=== PATIENT | male | born 1940 | race Hispanic/Latino ===

== ENCOUNTER 2017-02-22 00:27 | Inpatient (IN) | payer MEDICARE ==
[2017-02-22 00:56] LABS: #Lymphocytes 0.8 thou/uL (1.20-3.40); #Monocytes 0.6 thou/uL (0.11-0.59); #Neutrophils 6.8 thou/uL (1.40-6.50); %Basophils 0.4 % (0.0-1.0); %Lymphocytes 9.6 % (21.0-51.0); %Monocytes 7.3 % (0.0-10.0); Hematocrit 33.8 % (42.0-52.0); Mean Platelet Volume 6.8 fL (7.4-10.4); Red Blood Cell (RBC) Count 3.93 mill/uL (4.70-6.10); White Blood Cell (WBC) Count 8.2 thou/uL (4.8-10.8)
[2017-02-22 01:04] LABS: PTT 31.8 SEC (22.9-36.1); Prothrombin Time 12.8 SEC (12.0-14.7)
[2017-02-22 01:08] LABS: Lactic Acid - Sepsis 1.4 mmol/L (0.5-2.2)
[2017-02-22 01:11] LABS: ALT (SGPT) 15 U/L (8-55); AST (SGOT) 22 U/L (5-34); Alkaline Phosphatase 58 U/L (40-150); Anion Gap 15 mmol/L (10-20); BUN (Urea Nitrogen) 20 mg/dL (8.4-25.7); Bilirubin, Total 0.6 mg/dL (0.2-1.2); CK (CPK) 62 U/L (30-200); Calc. Creatinine Clearance 0 mL/min (70-130); Calcium 9.1 mg/dL (7.8-10.44); Carbon Dioxide 25 mmol/L (23-31); Chloride 84 mmol/L (98-107); Estimated GFR-MDRD 56; Globulin 3.8 g/dL (2.4-3.5); Lipase 49 U/L (8-78); Protein, Total 7.8 g/dL (5.8-8.1)
[2017-02-22 01:16] LABS: Troponin I 0.014 ng/mL (< 0.028)
[2017-02-22 02:02] LABS: Oxyhemoglobin 91.9 % (94.0-97.0); Sodium 122 mmol/L (135-148)
[2017-02-22 02:03] LABS: Modified Allen's Test POSITIVE; Vent NO
[2017-02-22 02:04] LABS: Mode NASAL CANNULA
[2017-02-22 02:47] LABS: Bilirubin Negative (Negative); Blood, Urine Negative (Negative); Glucose, Urine (Dipstick) Negative (Negative); Ketone, Urine Negative (Negative); Nitrite Negative (Negative); Protein, Urine (Dipstick) Trace mg/dL (Neg-Trace); Urobilinogen 0.2 mg/dL (0.2-1.0)
[2017-02-22 02:49] LABS: Bacteria/HPF None Seen HPF (None Seen); Hyaline Casts/LPF 0-3 HYALINE CAST LPF (0-3 Hyaline); RBC/HPF 0-3 HPF (0-3); Squamous Epithelial None Seen HPF (0-3); WBC/HPF 0-3 HPF (0-3)
--- NOTE | 2017-02-22 07:45 | RAD ---
CHEST 1 VIEW: HISTORY: Fever. COMPARISON: Chest radiograph from 2009. FINDINGS: New left lower lobe airspace opacity. There are scattered granulomas throughout the lungs. Decreased subacromial space bilaterally. IMPRESSION: Left lower lobe airspace opacity suggesting pneumonia. Followup after treatment recommended. POS: [facility]
[2017-02-22] MEDS ORDERED: hydrALAZINE 20 MG/ML VIAL SLOW IVP PRN (14:02)
[2017-02-22] MEDS ORDERED: Ondansetron HCl/PF 4 MG/2 ML Vial IVP PRN (14:02)
[2017-02-22] MEDS ORDERED: Temazepam 15 MG CAP PO PRN (14:02)
[2017-02-22] MEDS ORDERED: cloNIDine 0.1 MG TAB PO PRN (14:02)
[2017-02-22] MEDS ORDERED: Dextrose 50% Abboject 50 ML SYRINGE SLOW IVP PRN (14:02)
[2017-02-22] MEDS ORDERED: Acetaminophen 500 MG TAB PO PRN (14:02)
[2017-02-22] MEDS ORDERED: Ondansetron ODT 4 MG TAB PO PRN (14:02)
[2017-02-22] MEDS ORDERED: Benzonatate 100 MG CAP PO PRN (14:02)
[2017-02-22] MEDS ORDERED: Dextrose 5% in Water 1,000 ML IV PRN (14:02)
[2017-02-22] MEDS ORDERED: HumaLOG 300 UNITS/3 ML VIAL SC PRN ×2 (14:02)
[2017-02-22] MEDS: Sodium Chloride 0.9% 1,000 ML IV SCH ×2 (14:44→20:34)
--- NOTE | 2017-02-22 16:50 | HP ---
DATE OF ADMISSION: 02/22/2017 PRIMARY CARE PROVIDER: Dr. Elijah Mendoza. CHIEF COMPLAINT: Confusion and fever. HISTORY OF PRESENT ILLNESS: This is a 77-year-old male, who presented to [facility] Emergency Department. After family noted increased confusion over the last 48 hours with some diff iculty ambulating and fever. The patient reported some body aches and confusion with fatigue and tro uble sleeping. The patient had mild cough that was nonproductive, but no specific exposure history. The patient denied receiving an influenza or pneumonia vaccination with fear of duy the illn ess after receiving the vaccinations. The patient denied taking any new medications, recent travel h istory, chest pain, left arm or jaw discomfort. The family does report some recent difficulty with s leeping through the night as well as some restless leg type symptoms. The patient denies any family members with similar symptoms, but otherwise remains fairly active at home according to family member s. In the emergency room, the patient underwent general evaluation including chest imaging showing e vidence of left lower lobe infiltrate. Metabolic screening showed hyponatremia with a serum sodium o f 120 and temperature of 101 degrees Fahrenheit. The patient received intravenous normal saline x2 l iters in addition to Levaquin 750 mg x1 dose with DuoNeb x1 treatment. The patient was transferred t o the medical floor for further evaluation. PAST MEDICAL HISTORY: 1. Diabetes mellitus type 2. 2. Hypertension. 3. Hyperlipidemia. 4. History of cholelithiasis. PAST SURGICAL HISTORY: 1. Status post laparoscopic cholecystectomy. 2. Status post cardiac stent placement. CURRENT MEDICATIONS: 1. Metoprolol 100 mg p.o. b.i.d. 2. Simvastatin 40 mg one tablet p.o. daily. 3. Enteric coated aspirin 81 mg 1 tablet p.o. daily. 4. Felodipine 5 mg 1 tablet p.o. daily. List is not complete and will need to be confirmed with family members. ALLERGIES: No known drug allergies. FAMILY HISTORY: Positive for hypertension. SOCIAL HISTORY: The patient resides in the [place], [place] area with family members. The patient li ves with his son. Functional of all activities with daily living. No current alcohol, tobacco or il licit drug use. Retired. REVIEW OF SYSTEMS: The following complete review of systems was negative, unless otherwise mentioned in the HPI or below: Constitutional: Weight loss or gain, ability to conduct usual activities. Skin: Rash, itching. Eyes: Double vision, pain. ENT/Mouth: Nose bleeding, neck stiffness, pain, tenderness. Cardiovascular: Palpitations, dyspnea on exertion, orthopnea. Respiratory: Shortness of breath, wheezing, cough, hemoptysis, fever or night sweats. Gastrointestinal: Poor appetite, abdominal pain, heartburn, nausea, vomiting, constipation, or diarrh ea. Genitourinary: Urgency, frequency, dysuria, nocturia. Musculoskeletal: Pain, swelling. Neurologic/Psychiatric: Anxiety, depression. Allergy/Immunologic: Skin rash, bleeding tendency. PHYSICAL EXAMINATION: VITAL SIGNS: On admission, blood pressure 122/59, pulse 81, respiratory rate 30, temperature 101 deg rayo Fahrenheit, and O2 saturation 84% on room air. GENERAL APPEARANCE: This is a 77-year-old male, alert and oriented x3, pleasant, responsive , in no acute distress. HEENT: Pupils are equal, round, and reactive to light and accommodation. Extraocular muscles are in tact. No scleral icterus, no conjunctival injection. Nares patent. OP is clear. Oral mucosa dry a ppearing. NECK: Supple, no cervical adenopathy, no thyromegaly, no carotid bruits, no JVD appreciated. Cervic al spine with full active and passive range of motion. No meningeal signs appreciated. CHEST: Coarse breath sounds in the left lung base. CARDIOVASCULAR: S1 and S2, without noted murmur. ABDOMEN: Flat, soft, nontender, nondistended. Bowel sounds are positive in all four quadrants. The re is no hepatosplenomegaly, no abdominal bruits, no rebound or guarding appreciated. EXTREMITIES: Warm and dry with fair turgor. No clubbing, cyanosis or asymmetric edema appreciated. Pulses palpable distally at the dorsalis pedis, posterior tibial, and popliteal arteries bilaterally . Capillary refill less than 2 seconds. NEUROLOGIC: Cranial nerves II through XII are grossly intact. No focal or lateralizing signs apprec iated. PERTINENT LABORATORY AND X-RAY FINDINGS: Sodium 120, potassium 3.9, chloride 84, CO2 of 25, BUN 20, creatinine 1.26 with estimated GFR 56, glucose 215, calcium 9.1, lactic acid level 1.4. LFTs within normal limits. BNP 31.2, albumin 4.0. Lipase 49. CBC showed a white blood cell count 8.2, hemoglob in 12, hematocrit 34, platelet count 259 with 83% neutrophils. ABG on admission 02/22/2017 at 1:50 a .m. showed a pH of 7.44, pCO2 of 33, and pO2 of 66, bicarbonate 22.1, O2 saturation 94% on 2 liters p er minute by nasal cannula. Beta hydroxybutyrate level 0.16. Urinalysis showed small leukocyte emmy rase, otherwise negative. Influenza A and B antigen negative 02/22/2017. Portable chest x-ray dated 02/22/2017 showed a left lower lobe opacity suggesting pneumonia. EKG dated 02/22/2017 by my interp retation shows sinus mechanism with heart rate in the 80s. Normal R-wave progression noted in the pr ecordial leads. Normal axis. No acute ST-T wave changes appreciated. ASSESSMENT AND PLAN: 1. Sepsis syndrome secondarily to #2. 2. We will continue general sepsis protocol. Initial lactic acid level normal. Continue treatment as outlined in #2 and monitor clinical response. 3. Left lower lobe community-acquired pneumonia, likely gram positive cocci. We will continue Levaq uin 750 mg IV q.24 hours. Blood cultures x2 pending. Continue general pulmonary supportive measures . Mucolytics as needed. Update influenza and pneumonia vaccination prior to discharge. 4. Hyponatremia. Suspect secondarily to decreased oral intake in conjunction with pneumonia. Haroon nue intravenous normal saline at 100 mL per hour and repeat sodium level in the a.m. 5. Chronic kidney disease stage 2. Continue intravenous fluids as outlined previously. Avoid nephr otoxic agents and contrast media. Repeat creatinine in the a.m. 6. Acute metabolic encephalopathy. Suspect secondarily to fever in conjunction with hyponatremia an d pneumonia. We will continue supportive management. Resolving currently. 7. Diabetes mellitus type 2. Insulin sliding scale for reflexive coverage. Serial Accu-Cheks befor e meals and at bedtime. Confirm home diabetic regimen. 8. Prophylaxis. Sequential compression devices while in bed. Pepcid 20 mg p.o. b.i.d. 9. Code status: FULL. Surrogate medical decision maker is patient's son.
[2017-02-22] MEDS: Insulin Detemir 100 UNITS/ML 30 UNITS in Pre-Filled Syringe 1 EACH SC SCH (20:34)
[2017-02-22] MEDS: Famotidine 20 MG TAB PO SCH (20:34)
[2017-02-22] MEDS ORDERED: Non-Formulary Item 1 EACH (Insulin Glargine,Hum.Rec.Anlog [Lantus] 30 UNITS) SQ SCH (21:00)
[2017-02-22] MEDS: Metoprolol Tartrate 100 MG TAB PO SCH (21:18)
[2017-02-22 21:33] VITALS: BMI 26.6
[2017-02-23] MEDS: Sodium Chloride 0.9% 1,000 ML IV SCH ×2 (04:57→17:30)
[2017-02-23 05:58] LABS: Band 4 % (5-11); Hematocrit 31.6 % (42.0-52.0); Mean Platelet Volume 6.9 fL (7.4-10.4); Neutrophil 62 % (42-75); Red Blood Cell (RBC) Count 3.65 mill/uL (4.70-6.10); White Blood Cell (WBC) Count 4.9 thou/uL (4.8-10.8)
[2017-02-23 06:02] LABS: BUN (Urea Nitrogen) 8 mg/dL (8.4-25.7); Calc. Creatinine Clearance 78 mL/min (70-130); Calcium 9.1 mg/dL (7.8-10.44); Chloride 97 mmol/L (98-107); Estimated GFR-MDRD 86
[2017-02-23 06:03] LABS: Carbon Dioxide 24 mmol/L (23-31)
[2017-02-23 06:17] LABS: Anion Gap 13 mmol/L (10-20)
[2017-02-23] MEDS: Insulin Detemir 100 UNITS/ML 30 UNITS in Pre-Filled Syringe 1 EACH SC SCH ×2 (08:28→20:27)
[2017-02-23] MEDS: Metoprolol Tartrate 100 MG TAB PO SCH ×2 (08:28→20:27)
[2017-02-23] MEDS: Famotidine 20 MG TAB PO SCH ×2 (08:28→20:26)
--- NOTE | 2017-02-23 16:14 | PDOC.PN ---
- Subjective Encounter Start Date: 02/23/17 Encounter Start Time: 16:00 Subjective: f/u for LLL PNA and suspected sepsis. Overall feeling well today. -: Appetite improved. Less weakness. Continues on Levaquin. - Objective Resuscitation Status: Resuscitation Status FULL:Full Resuscitation MAR Reviewed: Yes Vital Signs & Weight: Vital Signs (12 hours) Temp Pulse Resp BP BP Pulse Ox 02/23/17 08:28 91 130/69 02/23/17 08:16 97.9 F 91 20 130/69 90 L 02/23/17 08:00 97.9 F 91 20 Weight Weight 165 lb 5.547 oz I&O: 02/22/17 02/23/17 02/24/17 06:59 06:59 06:59 Intake Total 950 Output Total 800 Balance 150 Result Diagrams: 02/23/17 04:32 02/23/17 04:32 Additional Labs: Accuchecks 02/23/17 02/23/17 02/22/17 12:00 04:15 21:08 POC Glucose 145 H 98 239 H Microbiology 02/22/17 01:35 Nasopharyngeal swab Influenza Types A,B Direct EIA - Final 02/22/17 00:48 Venous blood - Right Arm Blood Culture - Preliminary Specimen has been received and culture in progress. No Growth to date. 02/22/17 00:40 Venous blood - Left Arm Blood Culture - Preliminary Specimen has been received and culture in progress. No Growth to date. Laboratory Tests 02/22/17 02/22/17 02/23/17 00:40 00:40 04:32 Hgb 11.7 L Neutrophils % 82.8 H Neutrophils % (Manual) 62 Sodium 120 L Creatinine 1.26 Phys Exam - Physical Examination Constitutional: NAD HEENT: PERRLA, oral pharynx no lesions Neck: no JVD, supple Respiratory: no wheezing, clear to auscultation bilateral Cardiovascular: RRR Gastrointestinal: soft, non-tender, no distention, positive bowel sounds Musculoskeletal: no edema, pulses present Neurological: normal sensation, moves all 4 limbs Psychiatric: A&O x 3 Skin: normal turgor, cap refill <2 seconds Dx/Plan (1) Sepsis Code(s): A41.9 - SEPSIS, UNSPECIFIED ORGANISM Status: Suspected Comment: Resolving, continue treatment as outlined in #2 (2) LLL pneumonia Code(s): J18.1 - LOBAR PNEUMONIA, UNSPECIFIED ORGANISM Status: Acute Comment : Suspected with gm+ cocci, continue Levaquin, general pulmonary supportive measures (3) Hyponatremia Code(s): E87.1 - HYPO-OSMOLALITY AND HYPONATREMIA Status: Acute Comment: Improved, continue IV NS another 24h, repeat Na+ in am (4) Acute metabolic encephalopathy Code(s): G93.41 - METABOLIC ENCEPHALOPATHY Status: Acute Comment: Resolved (5) CKD (chronic kidney disease), stage II Code(s): N18.2 - CHRONIC KIDNEY DISEASE, STAGE 2 (MILD) Status: Chronic (6) DM II (diabetes mellitus, type II), controlled Code(s): E11.9 - TYPE 2 DIABETES MELLITUS WITHOUT COMPLICATIONS Status: Chronic Comment: Continue Levemir 30u SC BID, ISS - Plan continue antibiotics, PT/OT, manager social media, out of bed/ambulate, DVT proph w/ SCDs Stable overall -: Continue Levaquin 750mg IV daily x 24h then convert to po -: Continue IV NS 100ml/h -: OOB/ambulate -: AM lab: BMP, CBC * .
[2017-02-24] MEDS: Sodium Chloride 0.9% 1,000 ML IV SCH (01:19)
[2017-02-24 06:12] LABS: Hematocrit 33.2 % (42.0-52.0); Mean Platelet Volume 6.7 fL (7.4-10.4); Neutrophil 70 % (42-75); Red Blood Cell (RBC) Count 3.77 mill/uL (4.70-6.10); White Blood Cell (WBC) Count 4.8 thou/uL (4.8-10.8)
[2017-02-24 06:24] LABS: Anion Gap 14 mmol/L (10-20); BUN (Urea Nitrogen) 5 mg/dL (8.4-25.7); Calc. Creatinine Clearance 0 mL/min (70-130); Calcium 8.9 mg/dL (7.8-10.44); Carbon Dioxide 23 mmol/L (23-31); Chloride 98 mmol/L (98-107); Estimated GFR-MDRD 86
[2017-02-24 07:30] VITALS: BP 144/76; TEMP 97.6
[2017-02-24] MEDS: Insulin Detemir 100 UNITS/ML 30 UNITS in Pre-Filled Syringe 1 EACH SC SCH (09:38)
[2017-02-24] MEDS: Metoprolol Tartrate 100 MG TAB PO SCH (09:39)
[2017-02-24] MEDS: Famotidine 20 MG TAB PO SCH (09:39)
--- NOTE | 2017-02-24 11:28 | DIS ---
DATE OF ADMISSION: 02/22/2017 DATE OF DISCHARGE: 02/24/2017 DISCHARGE DIAGNOSES: 1. Sepsis syndrome, secondary to #2, resolving. 2. Left lower lobe community-acquired pneumonia with suspected gram-positive cocci, improved. 3. Hyponatremia, multifactorial, improved. 5. Acute metabolic encephalopathy, resolved. 6. Chronic kidney disease, stage 2, stable. 7. Diabetes mellitus, type 2, insulin-requiring, stable. CONSULTATIONS: None. PERTINENT LABORATORY AND X-RAY FINDINGS: Sodium level ranged between 120-131, creatinine ranged betw een 0.86-1.26 with estimated GFR ranging between 56-86. Lactic acid level 1.4. BNP 31.2, albumin 4. 0, lipase 49. CBC showed a white blood cell count ranging between 4.9-8.2, hemoglobin ranging betwee n 10.4-11.7. Beta-hydroxybutyrate level 0.16. Blood cultures x2 dated 02/22/2017 showed no growth t o date. Influenza A and B antigen 02/22/2017 negative. Portable chest x-ray dated 02/22/2017 showed left lower lobe opacity suggesting pneumonia. HOSPITAL COURSE: Patient was admitted to the medical floor after presenting with confusion, fever, a nd chest imaging showing infiltrate of the left lower lobe concerning for pneumonia. Patient was ini tially managed with IV Levaquin 750 mg daily, as well as bronchodilator therapy with DuoNeb. Patient was also noted with concomitant hyponatremia, initiated on intravenous normal saline with serial sod ium evaluation showing overall improvement by the time of discharge. The patient was also noted with mild encephalopathy secondarily to his presentation with pneumonia and hyponatremia, symptomatically managed and resolved by the time of discharge. Overall, the patient did remain clinically stable th roughout the hospital course, tolerating regular oral intake, ambulating without assistance or diffic ulty and voiding appropriately. The patient overall clinically at baseline functional status and dirk dy for discharge 02/24/2017. DISCHARGE MEDICATIONS: 1. Levaquin 500 mg 1 tab p.o. daily x7 days. 2. Enteric-coated aspirin 81 mg 1 tab p.o. daily. 3. Felodipine ER 5 mg p.o. daily. 4. Glargine insulin 30 units subcutaneously b.i.d. 5. Metoprolol tartrate 100 mg p.o. b.i.d. 6. Zocor 40 mg p.o. at bedtime. FOLLOWUP: Patient will follow up with his primary care provider, Dr. Elijah Mendoza, within 7 days. CONDITION ON DISCHARGE: Stable. ACTIVITY: Ad randall. DIET: Heart healthy and ADA. CODE STATUS: FULL. DISPOSITION: Home, 02/24/2017.
--- NOTE | 2017-02-27 13:54 | EKG ---
Test Reason : Blood Pressure : / mmHG Vent. Rate : 080 BPM Atrial Rate : 080 BPM P-R Int : 148 ms QRS Dur : 094 ms QT Int : 422 ms P-R-T Axes : 065 043 063 degrees QTc Int : 486 ms Normal sinus rhythm with sinus arrhythmia Prolonged QT Abnormal ECG Confirmed by TRESA KAPOOR, CRISTOFER ([id number]), news editor YOHAN SWEENEY ([id number]) on 02/27/2017 1:52:46 PM Referred By: TRESA Confirmed By:CRISTOFER GTZ MD
--- NOTE | 2017-02-28 11:18 | PQF ---
AMRIT BARRIENTOSCHRIS DO [id number] CLINICAL DOCUMENTATION CLARIFICATION FORM: POST DISCHARGE Addendum to original discharge summary date: ____ Late entry note date: __ DATE: 02/28/2017 ATTN: Please exercise your independent, professional judgment in responding to the clarification form. Clinical indicators are provided on the bottom of this form for your review Please check appropriate box(s): [ x] Sepsis due to: (Pna, UTI, gangrenous gall bladder, etc.) ___Pneumonia____ Due to: [ ] Device (please specify) [ ] Implant [ ] Graft [ ] Infusion [ ] SIRS due to non-infectious process (please specify etiology) [ ] with organ dysfunction [ ] without organ dysfunction [ ] Severe sepsis with acute organ dysfunction of: (Examples: respiratory failure, encephalopathy, acute kidney failure, other) [ ] Localized infection without sepsis [ ] Other diagnosis [ ] Unable to determine In addition, please specify: Present on Admission (POA): [ x ] Yes [ ] No [ ] Unable to determine For continuity of documentation, please document condition throughout progress notes and discharge summary. Thank You. CLINICAL INDICATORS - SIGNS / SYMPTOMS / LABS: Altered mental status Fever 101.0, PULSE: 81, RESP: 30, BP 122/59 H&P - SEPSIS SYNDROME 2/2 TO LLL COMMUNITY-ACQUIRED PNEUMONIA, LIKELY GRAM POSITIVE COCCI PN - SEPSIS DS- SEPSIS SYNDROME RISK FACTORS: PNEUMONIA HYPONATREMIA ACUTE METABOLIC ENCEPHALOPATHY DIABETES TREATMENTS: Initiation SEPSIS PROTOCOL IV ANTIBIOTICS (This form is maintained as a part of the permanent medical record) 2014 [employer]. All Rights Reserved Hannah Wong, [place], [facility]-H [email or web address] [phone] [employer]IMILIAN
== END 2017-02-24 13:11 | disposition home or self-care (01) | DRG 871 ==
LOC: ERS 00:27 → ERHOLD 02:30 → OBSVTOIN 02:42 → 3SE 10:15 → T4-B 19:03
PROVIDERS: ADMIT Internal Medicine; ATTEND Internal Medicine
DX: A41.9 Sepsis, unspecified organism (principal); J18.9 Pneumonia, unspecified organism; G93.41 Metabolic encephalopathy; E11.22 Type 2 diabetes mellitus with diabetic chronic kidney disease; E87.1 Hypo-osmolality and hyponatremia; I12.9 Hypertensive chronic kidney disease with stage 1 through stage 4 chronic kidney disease, or unspecified chronic kidney disease; N18.2 Chronic kidney disease, stage 2 (mild); Z79.4 Long term (current) use of insulin
CPT/HCPCS: 36415; 36416; 71010; 80048; 80053; 81003; 81015; 82010; 82550; 82553; 82805; 83605; 83690; 83880; 84484; 85007; 85025; 85027; 85610; 85730; 87040; 93005; 96361; 96365; J1815; J1956; J7620

== ENCOUNTER 2018-09-26 05:08 | Inpatient (IN) | payer MEDICARE ==
[2018-09-26 06:43] LABS: #Basophils 0.1 thou/uL (0.0-0.2); #Eosinphils 0.2 thou/uL (0.0-0.7); #Lymphocytes 1.9 thou/uL (1.20-3.40); #Monocytes 1.1 thou/uL (0.11-0.59); #Neutrophils 9.9 thou/uL (1.40-6.50); %Basophils 0.4 % (0.0-1.0); %Eosinophils 1.6 % (0.0-10.0); %Lymphocytes 14.4 % (21.0-51.0); %Monocytes 8.6 % (0.0-10.0); Hemoglobin 11.1 g/dL (14.0-18.0); Mean Corpuscular HGB CONC 32.6 g/dL (32.0-36.0); Mean Corpuscular Hemoglobin 27.7 pg (27.0-31.0); Mean Corpuscular Volume 85.1 fL (78.0-98.0); Mean Platelet Volume 7.1 fL (7.4-10.4); Platelet Count 365 thou/uL (130-400); RBC Distribution Width 15.1 % (11.5-14.5); Red Blood Cell (RBC) Count 3.99 mill/uL (4.70-6.10); White Blood Cell (WBC) Count 13.1 thou/uL (4.8-10.8)
[2018-09-26 06:56] LABS: ALT (SGPT) Less than 7 U/L (8-55); AST (SGOT) 15 U/L (5-34); Albumin 4.1 g/dL (3.4-4.8); Alkaline Phosphatase 82 U/L (40-150); Anion Gap 15 mmol/L (10-20); BUN (Urea Nitrogen) 14 mg/dL (8.4-25.7); Bilirubin, Total 0.8 mg/dL (0.2-1.2); Calc. Creatinine Clearance 0 mL/min (70-130); Calcium 9.9 mg/dL (7.8-10.44); Carbon Dioxide 23 mmol/L (23-31); Chloride 86 mmol/L (98-107); Estimated GFR-MDRD 73; Globulin 3.9 g/dL (2.4-3.5); Glucose 142 mg/dL (83-110); Sodium 120 mmol/L (136-145)
--- NOTE | 2018-09-26 07:14 | RAD ---
CHEST 1 VIEW: Date: 09/26/18 INDICATION: Diabetic patient with lethargy, and leg and hip pain. FINDINGS: There is scattered calcified granuloma. Heart size upper limits of normal. There is scattered degener ative change. IMPRESSION: No acute abnormality. POS: [facility]
--- NOTE | 2018-09-26 07:16 | RAD ---
LEFT HIP 2 VIEWS: Date: 09/26/18 INDICATION: Left hip pain. COMPARISON: None. FINDINGS/IMPRESSION: There is mild degenerative arthrosis of the left hip. There are vascular calcifications within the ad jacent soft tissues. There is diffuse osteopenia. No definite acute fracture or subluxation is demons trated. POS: [facility]
[2018-09-26 08:26] LABS: Bilirubin Negative (Negative); Blood, Urine Negative (Negative); Glucose, Urine (Dipstick) Negative (Negative); Leukocyte Trace (Negative); Nitrite Negative (Negative); Protein, Urine (Dipstick) Negative (Neg-Trace)
[2018-09-26 08:37] LABS: Clarity Hazy (Clear)
[2018-09-26 08:44] LABS: Bacteria/HPF Rare-Few HPF (None Seen); RBC/HPF 0-3 HPF (0-3); Squamous Epithelial 0-3 HPF (0-3)
--- NOTE | 2018-09-26 09:39 | PDOC.HOSPP ---
- Objective Result Diagrams: 09/26/18 06:11 09/26/18 06:11 ROS - Review of Systems All systems: All other ROS were reviewed and found negative.
[2018-09-26] MEDS ORDERED: Ondansetron PF 4 MG/2 ML Vial IVP PRN (09:40)
[2018-09-26] MEDS ORDERED: Acetaminophen 325 MG TAB PO PRN (09:40)
[2018-09-26] MEDS ORDERED: Ondansetron ODT 4 MG TAB SL PRN (09:40)
[2018-09-26] MEDS ORDERED: Dextrose 5% in Water 1,000 ML IV PRN (10:04)
[2018-09-26] MEDS ORDERED: Ondansetron ODT 4 MG TAB PO PRN (10:04)
[2018-09-26] MEDS ORDERED: Zolpidem Tartrate 5 MG TAB PO PRN (10:04)
[2018-09-26] MEDS ORDERED: Dextrose 50% Abboject 50 ML SYRINGE SLOW IVP PRN (10:04)
[2018-09-26 10:27] VITALS: BMI 23.3
[2018-09-26 10:38] LABS: Hemoglobin A1c 8.1 % (4.0-6.0)
[2018-09-26 10:49] LABS: Iron 31 ug/dL (65-175); Iron Binding Capacity, Total 274 mcg/dL (261-462)
--- NOTE | 2018-09-26 11:07 | HP ---
PRIMARY CARE PHYSICIAN: Elijah Mendoza MD. HISTORY OF PRESENT ILLNESS: The patient referred to [facility] for weakness and hyponatremia. The patient presented with left leg weakness. He states he has pain in his left hip, down his left leg present for 2 weeks. He has had no medicines for it. He denies any other problems, specifically no weakness, dizziness, etc. PAST MEDICAL HISTORY: Pertinent for, 1. Diabetes mellitus type 2, insulin dependent. 2. Hypertension. 3. Hyperlipidemia. 4. Coronary artery disease, post ID in the distant past. PAST SURGICAL HISTORY: 1. Laparoscopic cholecystectomy. 2. Post PCI and cardiac cath. CURRENT MEDICATIONS: 1. Metoprolol 100 mg twice a day. 2. Zocor 40 mg a day. 3. Aspirin 81 mg a day. 4. Lantus, unknown dose. 5. Lisinopril 20 mg a day. 6. Unknown insulin, family is going to obtain that. ALLERGIES: NONE. FAMILY HISTORY: Positive for hypertension. The patient resides in [place]. . Full code status. Decision maker is Faith Alfaro. Brother with diabetes. SOCIAL HISTORY: No tobacco. No alcohol. REVIEW OF SYSTEMS: GENERAL: No headaches, dizziness, fainting, fever, or chills. EYES: Glasses. No double vision, blurred vision, or flashing lights. EARS, NOSE, AND THROAT: No ear pain or drainage. No nasal bleeding. No trouble swallowing. CARDIAC: No chest pain, orthopnea, or paroxysmal nocturnal dyspnea. RESPIRATION: No cough, wheezing, or asthma. GASTROINTESTINAL: He states he has a poor appetite. He has lost 8 to 9 pounds in the past 2 weeks. He has had no nausea, vomiting, abdominal pain, or diarrhea, etc. GENITOURINARY: No hematuria or dysuria. MUSCULOSKELETAL: Other than the present illness, no pain in his legs or arms. NEUROLOGIC: No strokes, seizures, or focal weakness. PSYCHIATRIC: No anxiety or depression. SKIN: No bruising, bleeding, or rash. HEME/LYMPH: No tender or swollen lymph nodes in the axilla, inguinal, or cervical area. PSYCHIATRIC: The patient is alert, appropriate, and cooperative. Family at bedside. PHYSICAL EXAMINATION: VITAL SIGNS: Blood pressure 148/84, pulse 69, respirations 18, and temperature 97.8. HEENT: Examination of his head, eyes, ears, nose, and throat revealed pupils equal and round. Extraocular movements are intact. Sclerae are white. Tympanic membranes are clear. Nose is clear. Oral mucous membranes are wet. Dental hygiene is good. NECK: No jugular venous distention, adenopathy, or thyromegaly. CHEST: Clear to auscultation and percussion. HEART: He had a basic underlying regular rhythm with every 4th beat dropped. First and second second heart sounds are clear. There are no murmurs or gallops. ABDOMEN: Soft. Bowel sounds are normal. There is no hepatosplenomegaly. No mass. No rebound. No tenderness. Bowel sounds are present. EXTREMITIES: No cyanosis, clubbing, or edema. PULSES: Carotid, radial, femoral, and dorsalis pedis pulses intact. SKIN: Warm and dry without bruises or rash. HEME/LYMPH: No tender or swollen lymph nodes in axilla, inguinal, or cervical area. NEUROLOGIC: Cranial nerves 2 through 12 are intact. Moves all extremities. Toes downgoing. DIAGNOSTIC DATA: Chest x-ray, scattered small granulomas. Cardiac silhouette normal. No infiltrates or congestive heart failure, reviewed by me. Hip x-ray; no fracture, mild degenerative changes, reviewed by me. EKG, none available. One has been ordered because of his irregular heart. LABORATORY DATA: Sodium 120, potassium 4.0, chloride 86, CO2 of 23, BUN 14, and creatinine 0.99, blood sugar 142. Liver function tests are normal. Urine shows 4 to 6 white cells, but no nitrite or esterase. Of note, CBC; white count 13.1, platelet count 265,000, and hemoglobin 11.1. ASSESSMENT: 1. Hyponatremia. 2. Mild anemia. 3. Left hip pain. 4. Diabetes mellitus type 2. 5. Hypertension. 6. Coronary artery disease. PLAN: 1. IV saline at 75 mL an hour. Cortisol level, TSH level. 2. Iron, iron binding capacity, vitamin B12 level. 3. Accu-Cheks and sliding scale. 4. CT of lumbar spine. We will re-evaluate when data is available. Job ID: [id number] MTDD
--- NOTE | 2018-09-26 11:07 | CT ---
CT LUMBAR SPINE: Date: 09/26/2018 COMPARISON: None. HISTORY: Lumbar radiculopathy. TECHNIQUE: Axial CT imaging at 2.5 mm intervals through the lumbar spine without contrast with saha l and sagittal reformatted imaging. FINDINGS: Evaluation for central canal and/or neural foraminal stenosis is limited on routine CT examination. There is mild anterolisthesis at L3-4 measuring approximately 4-5 mm. There is extensive atherosclerotic calcification of the abdominal aorta and its branches, with promin ent atherosclerotic calcification of the infrarenal abdominal aorta and the pelvic arterial structures. There is significant bilateral sacroiliac joint degenerative change with anterior osteophyte formatio n noted bilaterally, right greater than left. T12-L1: There is disc space narrowing and anterior osteophyte formation with bilateral facet hypertro phy and probable mild disc bulge. There is probable mild bilateral neural foraminal stenosis. No osseous cause of significant central canal stenosis. L1-2: Disc space narrowing, vacuum disc formation, and posterior disc osteophyte complex. Bilateral f acet hypertrophy and hypertrophy of ligamentum flavum. Moderate central canal stenosis suspected with at least moderate bilateral neural foraminal stenosis. L2-3: Bilateral facet hypertrophy. Disc bulge noted with prominent ligamentum flavum hypertrophy. Sev ere central canal stenosis is suspected. Moderate bilateral neural foraminal stenosis, left greater than right. L3-4: There is disc space narrowing and vacuum disc formation with severe bilateral facet hypertrophy and hypertrophy of the ligamentum flavum. Severe central canal stenosis. Severe bilateral neural foraminal stenosis L4-5: Severe degenerative endplate changes are present with disc space narrowing and vacuum disc form ation. There is posterior osteophyte and there is osteophyte encroachment on bilateral neural foramina, right greater than left, with severe central canal stenosis and severe bilateral neural for aminal stenosis L5-S1: There is disc space narrowing and vacuum disc formation with bilateral facet hypertrophy and d isc osteophyte complex. Probable mild central canal stenosis. Moderate/severe bilateral neural foraminal stenosis. No worrisome lytic or blastic bone lesion. No acute fracture or dislocation. IMPRESSION: Severe multilevel lumbar spine degenerative change as described above. Evaluation for central canal o r neural foraminal stenosis could be best assessed via MRI or lumbar spine myelogram as clinically warranted. Transcribed Date/Time: 09/26/2018 11:11 AM
[2018-09-26] MEDS: Sodium Chloride 0.9% 1,000 ML IV SCH ×2 (12:01→23:24)
[2018-09-26] MEDS: HumaLOG 300 UNITS/3 ML VIAL SC PRN ×2 (12:15→17:21)
[2018-09-26 12:36] LABS: Anion Gap 15 mmol/L (10-20); BUN (Urea Nitrogen) 15 mg/dL (8.4-25.7); Calc. Creatinine Clearance 50 mL/min (70-130); Calcium 9.7 mg/dL (7.8-10.44); Carbon Dioxide 23 mmol/L (23-31); Chloride 86 mmol/L (98-107); Estimated GFR-MDRD 71; Glucose 174 mg/dL (83-110); Potassium 3.8 mmol/L (3.5-5.1); Sodium 120 mmol/L (136-145)
--- NOTE | 2018-09-26 16:02 | PDOC.EVN ---
Event Note - Event Note Event Note: daughter and i had long conversation. she is not happy with my assessment. she requested different hospitalist
[2018-09-26] MEDS: Naproxen 500 MG TAB PO SCH (17:21)
[2018-09-26 18:28] LABS: Anion Gap 12 mmol/L (10-20); BUN (Urea Nitrogen) 14 mg/dL (8.4-25.7); Calc. Creatinine Clearance 50 mL/min (70-130); Calcium 9.2 mg/dL (7.8-10.44); Carbon Dioxide 22 mmol/L (23-31); Chloride 87 mmol/L (98-107); Estimated GFR-MDRD 72; Glucose 265 mg/dL (83-110); Potassium 3.7 mmol/L (3.5-5.1)
[2018-09-26 18:32] LABS: Sodium 117 mmol/L (136-145)
[2018-09-26] MEDS: Insulin Glargine 30 UNITS in Pre-Filled Syringe 1 EACH SC SCH (20:45)
[2018-09-27 00:19] LABS: Anion Gap 12 mmol/L (10-20); BUN (Urea Nitrogen) 13 mg/dL (8.4-25.7); Calc. Creatinine Clearance 58 mL/min (70-130); Calcium 9.2 mg/dL (7.8-10.44); Carbon Dioxide 21 mmol/L (23-31); Chloride 90 mmol/L (98-107); Estimated GFR-MDRD 84; Glucose 148 mg/dL (83-110); Potassium 3.3 mmol/L (3.5-5.1); Sodium 120 mmol/L (136-145)
[2018-09-27] MEDS: Naproxen 500 MG TAB PO SCH ×2 (08:15→16:35)
[2018-09-27] MEDS: Enoxaparin Sodium 40 MG/0.4 ML SYRINGE SC SCH (08:16)
[2018-09-27] MEDS ORDERED: Prevnar 13-Val Conj/PF 0.5 ML SYRINGE IM ONE ×2 (10:15→11:15)
[2018-09-27] MEDS: Insulin Glargine 30 UNITS in Pre-Filled Syringe 1 EACH SC SCH ×2 (12:07→20:20)
[2018-09-27] MEDS: HumaLOG 300 UNITS/3 ML VIAL SC PRN ×2 (12:08→16:38)
[2018-09-27] MEDS: Sodium Chloride 0.9% 1,000 ML IV SCH (13:38)
--- NOTE | 2018-09-27 16:31 | PDOC.HOSPP ---
- Subjective Subjective: f/u lumbar radiculopathy and hyponatremia. c/o LLE pain down to calf, no incontinence. No N/V, visual disturbance or cough. - Objective Vital Signs & Weight: Vital Signs (12 hours) Temp Pulse Resp BP BP Pulse Ox 09/27/18 15:35 97.5 F L 77 16 129/65 96 09/27/18 12:00 98.3 F 72 14 131/78 96 09/27/18 08:00 97.6 F 68 14 138/72 96 09/27/18 07:38 96 Weight Admit Weight 127 lb 13.89 oz Weight 127 lb 13.89 oz I&O: 09/26/18 09/27/18 09/28/18 06:59 06:59 06:59 Intake Total 2860 Output Total 425 Balance 2435 Result Diagrams: 09/26/18 06:11 09/26/18 23:41 Additional Labs: Accuchecks 09/27/18 09/27/18 09/26/18 11:33 04:53 23:08 POC Glucose 225 H 112 H 163 H 09/26/18 09/26/18 19:32 16:44 POC Glucose 288 H 216 H Microbiology 02/22/17 01:35 Nasopharyngeal swab Influenza Types A,B Direct EIA - Final 02/22/17 00:48 Venous blood - Right Arm Blood Culture - Preliminary Specimen has been received and culture in progress. No Growth to date. 02/22/17 00:40 Venous blood - Left Arm Blood Culture - Preliminary Specimen has been received and culture in progress. No Growth to date. Laboratory Tests 02/22/17 02/22/17 02/23/17 00:40 00:40 04:32 Hgb 11.7 L Neutrophils % 82.8 H Neutrophils % (Manual) 62 Sodium 120 L Potassium Creatinine 1.26 Iron TIBC Vitamin B12 Cortisol 09/26/18 09/26/18 09/26/18 06:11 06:11 12:00 Hgb Neutrophils % Neutrophils % (Manual) Sodium 120 L 120 L Potassium 4.0 3.8 Creatinine Iron 31 L TIBC 274 Vitamin B12 Cortisol 09/26/18 09/26/18 09/26/18 12:00 12:00 17:59 Hgb Neutrophils % Neutrophils % (Manual) Sodium 117 L* Potassium 3.7 Creatinine Iron TIBC Vitamin B12 183 L Cortisol 16.10 Radiology Reviewed by me: Yes (CT L-spine - severe DJD) ROS - Review of Systems All systems: All other ROS were reviewed and found negative. - Medication Medications: Active Medications Generic Name Dose Route Start Last Admin Trade Name Freq PRN Reason Stop Dose Admin Enoxaparin Sodium 40 mg 09/27/18 09:00 09/27/18 08:16 Lovenox SC 40 mg 0900 GLYNN Administration Insulin Glargine 30 units/ 0.3 mls @ 0 mls/hr 09/26/18 21:00 09/27/18 12:07 Miscellaneous Medication SC 0.3 mls BID GLYNN Administration Insulin Human Lispro 0 units 09/26/18 10:04 09/27/18 12:08 Humalog SC 4 unit .MODERATE SLIDING SC PRN Administration Moderate Correctional Scale Naproxen 500 mg 09/26/18 17:00 09/27/18 08:15 Naprosyn PO 500 mg BID-WM GLYNN Administration - Exam NAD, awake alert Eye: PERRL, anicteric sclera ENT: normocephalic atraumatic, no oropharyngeal lesions Neck: supple, symmetric, no JVD, no Thyromegaly Heart: RRR, no murmur, no gallops, no rubs Respiratory: CTAB, no wheezes, no ronchi Gastrointestinal: soft, non-tender, non-distended, normal bowel sounds Extremities: no cyanosis, no clubbing, no edema Neurological: CN's grossly intact, no focal deficits, no new deficit (LLE with 4 /5 strength) Musculoskeletal: generalized weakness (No foot drop, FAPROM L hip) Psychiatric: normal behavior, A&O x 3 Hosp A/P (1) Hyponatremia Code(s): E87.1 - HYPO-OSMOLALITY AND HYPONATREMIA Status: Acute Plan: Acute/chronic, likely SIADH, Fluid restrict 1.2L/24h, saline lock IVF, consult Nephrology for any further recommendations, serial Na+ (2) Lumbar radiculopathy Code(s): M54.16 - RADICULOPATHY, LUMBAR REGION Status: Acute Plan: Acute/chronic, check MRI L-spine, consult Neurosurgery, pain control as clinically indicated, PT evaluation for functional assessment (3) CKD (chronic kidney disease), stage II Code(s): N18.2 - CHRONIC KIDNEY DISEASE, STAGE 2 (MILD) Status: Chronic Plan: Avoid nephrotoxic agents, limit contrast exposure (4) DM II (diabetes mellitus, type II), controlled Code(s): E11.9 - TYPE 2 DIABETES MELLITUS WITHOUT COMPLICATIONS Status: Chronic Plan: Resume Lantus, serial accuchecks, ADA - Plan PT/OT, social worker clinical, out of bed/ambulate, DVT proph w/SCDs Stable currently Saline lock IVF Fluid restrict 1.2L PT evaluation MRI L-spine Neurosurgery consult for lumbar radiculopathy AM lab: BMP
[2018-09-27] MEDS: Simvastatin 40 MG TAB PO SCH (20:19)
[2018-09-27] MEDS: Metoprolol Tartrate 100 MG TAB PO SCH (20:19)
[2018-09-27] MEDS: DorzolamidE/Timolol 2%/0.5% Ophth Soln 10 ml Bottle R EYE SCH (20:20)
--- NOTE | 2018-09-28 05:20 | CON ---
DATE OF CONSULTATION: REQUESTING PHYSICIAN: Anne Tomas MD REASON FOR CONSULTATION: Worsening hyponatremia. IMPRESSION: Hyponatremia, query cause. This is possibly in the context of intake. However, I cannot completely rule out syndrome of inappropriate antidiuretic hormone. PLAN: Urine chemistry to evaluate the sodium and osmolality categorize the type of hyponatremia and treat accordingly. HISTORY OF PRESENT ILLNESS: A 78-year-old gentleman who presented here with weakness, noted to be hyponatremic and over the course of hospitalization, the patient's sodium has been trending downward. As a result of this, decision has been taken to involve Renal in the management of this case. PAST MEDICAL HISTORY: Significant for type 2 diabetes, hypertension, dyslipidemia, coronary artery disease. MEDICATIONS: Reviewed and as documented on [employer]. ALLERGIES: NO KNOWN DRUG ALLERGIES. FAMILY HISTORY: Not significantly related to present illness. SOCIAL HISTORY: No alcohol, no tobacco, no illicit drug use. REVIEW OF SYSTEMS: As documented in the body of the history. All other systems were reviewed and found not to be significantly related to present illness. PHYSICAL EXAMINATION: GENERAL: The patient was found not to be in any obvious distress with the following vital signs. VITAL SIGNS: Afebrile, temperature 97.7, pulse 90, respiratory rate of 20, O2 saturation of 96% with a blood pressure of 151/73. HEENT: Unremarkable. CARDIOVASCULAR: First and second heart sounds were heard. RESPIRATORY: Clear to auscultation. DIGESTIVE: Revealed a benign abdomen. Positive bowel sounds. EXTREMITIES: No peripheral edema. SKIN: No new gross rash. LYMPHATICS: No peripheral lymphadenopathy. SUMMARY: A 78-year-old gentleman who is experiencing worsening hyponatremia, possibly in the context of syndrome of inappropriate antidiuretic hormone. Job ID: [id number]
[2018-09-28] MEDS ORDERED: Lorazepam 0.5 MG TAB PO SCH (06:00)
[2018-09-28 06:54] LABS: Anion Gap 12 mmol/L (10-20); BUN (Urea Nitrogen) 11 mg/dL (8.4-25.7); Calc. Creatinine Clearance 63 mL/min (70-130); Calcium 9.2 mg/dL (7.8-10.44); Carbon Dioxide 25 mmol/L (23-31); Chloride 97 mmol/L (98-107); Estimated GFR-MDRD Greater than 90; Glucose 62 mg/dL (83-110); Potassium 3.7 mmol/L (3.5-5.1); Sodium 130 mmol/L (136-145)
--- NOTE | 2018-09-28 07:01 | PRG ---
DATE OF SERVICE: 09/28/2018 SUBJECTIVE: Patient noted with the following vital signs. OBJECTIVE: VITAL SIGNS: Afebrile, temperature 98.5; pulse 65; respiratory rate of 20; O2 saturation of 96%; blood pressure 158/70. HEENT: Unremarkable. CARDIOVASCULAR SYSTEM: First and second heart sounds were heard. RESPIRATORY SYSTEM: Clear to auscultation. DIGESTIVE SYSTEM: Revealed a benign abdomen with positive bowel sounds. EXTREMITIES: No peripheral edema. SKIN: No new gross rash. LYMPHATICS: No peripheral lymphadenopathy. LABORATORY INVESTIGATION: for now. Urine chemistry consistent with SIADH with urine osmolality of 439 and urine sodium of 57. IMPRESSION: 1. Hyponatremia in the context of . 2. Syndrome of inappropriate antidiuretic hormone. PLAN: 1. We will start this patient on anti-ADH medication tolvaptan. 2. Repeat sodium level check later today status post initiation of tolvaptan. 3. Adjust the diet to include increased portion of meat. 4. Further management to be dependent on the clinical course. Job ID: [id number]
[2018-09-28] MEDS: Acetaminophen 325 MG TAB PO PRN (07:16)
--- NOTE | 2018-09-28 08:13 | EKG ---
Test Reason : Blood Pressure : / mmHG Vent. Rate : 075 BPM Atrial Rate : 075 BPM P-R Int : 150 ms QRS Dur : 084 ms QT Int : 426 ms P-R-T Axes : 037 046 070 degrees QTc Int : 475 ms Normal sinus rhythm Normal ECG When compared with ECG of 26-SEP-2018 06:04, (Unconfirmed) No significant change was found Confirmed by DR. Kimberly ZHAO ([id number]) on 09/28/2018 8:13:17 AM Referred By: SOTERO Confirmed By:DR. Kimberly ZHAO
[2018-09-28] MEDS: Naproxen 500 MG TAB PO SCH ×2 (08:39→17:16)
[2018-09-28] MEDS: Aspirin Chewable 81 MG TAB PO SCH (08:39)
[2018-09-28] MEDS: Metoprolol Tartrate 100 MG TAB PO SCH ×2 (08:39→20:05)
[2018-09-28] MEDS: Amlodipine 5 MG TAB PO SCH (08:39)
[2018-09-28] MEDS: DorzolamidE/Timolol 2%/0.5% Ophth Soln 10 ml Bottle R EYE SCH ×2 (08:40→20:05)
[2018-09-28] MEDS: Enoxaparin Sodium 40 MG/0.4 ML SYRINGE SC SCH (08:41)
[2018-09-28] MEDS ORDERED: Tolvaptan 15 MG TAB PO SCH (09:00)
[2018-09-28] MEDS: HumaLOG 300 UNITS/3 ML VIAL SC PRN ×2 (11:37→20:26)
[2018-09-28] MEDS: Insulin Glargine 30 UNITS in Pre-Filled Syringe 1 EACH SC SCH ×2 (11:39→20:25)
--- NOTE | 2018-09-28 11:42 | PDOC.HOSPP ---
- Subjective Subjective: f/u for hyponatremia and LLE weakness/pain with L-spine DJD. Feels better overall but could not complete MRI L-spine this am. - Objective Vital Signs & Weight: Vital Signs (12 hours) Temp Pulse Resp BP BP BP Pulse Ox 09/28/18 11:12 97.9 F 65 16 139/68 94 L 09/28/18 08:49 98 09/28/18 08:39 65 124/62 09/28/18 08:38 124/62 09/28/18 07:52 97.9 F 65 16 174/71 H 98 09/28/18 04:40 98.5 F 65 20 158/70 H 96 09/28/18 00:22 98.7 F 64 20 153/75 H 97 Weight Admit Weight 127 lb 13.89 oz Weight 127 lb 13.89 oz I&O: 09/27/18 09/28/18 09/29/18 06:59 06:59 06:59 Intake Total 2860 120 Output Total 425 Balance 2435 120 Result Diagrams: 09/26/18 06:11 09/28/18 15:11 Additional Labs: Accuchecks 09/28/18 09/27/18 09/27/18 04:35 19:11 16:35 POC Glucose 82 229 H 179 H 09/27/18 11:33 POC Glucose 225 H Microbiology 02/22/17 01:35 Nasopharyngeal swab Influenza Types A,B Direct EIA - Final 02/22/17 00:48 Venous blood - Right Arm Blood Culture - Preliminary Specimen has been received and culture in progress. No Growth to date. 02/22/17 00:40 Venous blood - Left Arm Blood Culture - Preliminary Specimen has been received and culture in progress. No Growth to date. Laboratory Tests 02/22/17 02/22/17 02/23/17 00:40 00:40 04:32 Hgb 11.7 L Neutrophils % 82.8 H Neutrophils % (Manual) 62 Sodium 120 L Potassium Creatinine 1.26 Iron TIBC Vitamin B12 Cortisol 09/26/18 09/26/18 09/26/18 06:11 06:11 12:00 Hgb Neutrophils % Neutrophils % (Manual) Sodium 120 L 120 L Potassium 4.0 3.8 Creatinine Iron 31 L TIBC 274 Vitamin B12 Cortisol 09/26/18 09/26/18 09/26/18 12:00 12:00 17:59 Hgb Neutrophils % Neutrophils % (Manual) Sodium 117 L* Potassium 3.7 Creatinine Iron TIBC Vitamin B12 183 L Cortisol 16.10 ROS - Review of Systems All systems: All other ROS were reviewed and found negative. - Medication Medications: Active Medications Generic Name Dose Route Start Last Admin Trade Name Freq PRN Reason Stop Dose Admin Acetaminophen 650 mg 09/26/18 10:04 09/28/18 07:16 Tylenol PO 650 mg Q4H PRN Administration Headache/Fever/Mild Pain (1-3) Amlodipine Besylate 5 mg 09/28/18 09:00 09/28/18 08:39 Norvasc PO 5 mg DAILY GLYNN Administration Aspirin 81 mg 09/28/18 09:00 09/28/18 08:39 Aspirin Chewable PO 81 mg DAILY GLYNN Administration Dorzolamide/Timolol 1 drop 09/27/18 21:00 09/28/18 08:40 Cosopt 2-0.5% Ophth Soln R EYE 1 drop BID GLYNN Administration Enoxaparin Sodium 40 mg 09/27/18 09:00 09/28/18 08:41 Lovenox SC 40 mg 0900 GLYNN Administration Insulin Glargine 30 units/ 0.3 mls @ 0 mls/hr 09/26/18 21:00 09/27/18 20:20 Miscellaneous Medication SC 0.3 mls BID GLYNN Administration Insulin Human Lispro 0 units 09/26/18 10:04 09/27/18 16:38 Humalog SC 2 unit .MODERATE SLIDING SC PRN Administration Moderate Correctional Scale Lorazepam 0.5 mg 09/28/18 06:00 09/28/18 07:16 Ativan PO 09/28/18 20:00 0.5 mg WILLCALL GLYNN Administration Metoprolol Tartrate 100 mg 09/27/18 21:00 09/28/18 08:39 Lopressor PO 100 mg BID GLYNN Administration Naproxen 500 mg 09/26/18 17:00 09/28/18 08:39 Naprosyn PO 500 mg BID-WM GYLNN Administration Simvastatin 40 mg 09/27/18 21:00 09/27/18 20:19 Zocor PO 40 mg HS GLYNN Administration - Exam NAD, awake alert Eye: PERRL, anicteric sclera ENT: normocephalic atraumatic, no oropharyngeal lesions Neck: supple, symmetric, no JVD, no Thyromegaly Heart: RRR, no murmur, no gallops, no rubs, normal peripheral pulses Respiratory: CTAB, no wheezes, no rales, no ronchi Gastrointestinal: soft, non-tender, non-distended, normal bowel sounds, no palpable masses Extremities: no cyanosis, no clubbing, no edema Neurological: CN's grossly intact, no new deficit (Weakness of LLE in hip flexion, no foot drop) Psychiatric: normal behavior, A&O x 3 Hosp A/P (1) Hyponatremia Code(s): E87.1 - HYPO-OSMOLALITY AND HYPONATREMIA Status: Acute Plan: Improved with fluid restriction, received Tolvaptan x 1 dose this am, serial Na= (2) Lumbar radiculopathy Code(s): M54.16 - RADICULOPATHY, LUMBAR REGION Status: Acute Plan: Plan for outpt follow up with NS for evaluation, unable to complete MRI L-spine (3) CKD (chronic kidney disease), stage II Code(s): N18.2 - CHRONIC KIDNEY DISEASE, STAGE 2 (MILD) Status: Chronic Plan: Stable, avoid nephrotoxic meds and limit contrast exposure (4) DM II (diabetes mellitus, type II), controlled Code(s): E11.9 - TYPE 2 DIABETES MELLITUS WITHOUT COMPLICATIONS Status: Chronic Plan: Continue Glargine, ISS - Plan PT/OT, social media marketing analyst, out of bed/ambulate Stable currently Vaprisol IV x 1 dose today OOB with PT AM lab: BMP Likely home in am 09/29/18
[2018-09-28 16:08] LABS: Anion Gap 11 mmol/L (10-20); BUN (Urea Nitrogen) 11 mg/dL (8.4-25.7); Calc. Creatinine Clearance 56 mL/min (70-130); Calcium 9.1 mg/dL (7.8-10.44); Carbon Dioxide 24 mmol/L (23-31); Chloride 94 mmol/L (98-107); Estimated GFR-MDRD 82; Glucose 131 mg/dL (83-110); Potassium 3.8 mmol/L (3.5-5.1); Sodium 125 mmol/L (136-145)
[2018-09-28] MEDS ORDERED: Conivaptan 20 MG in Premix Bag 1 BAG IVPB SCH (16:30)
[2018-09-28] MEDS: Simvastatin 40 MG TAB PO SCH (20:05)
[2018-09-29] MEDS: Acetaminophen 325 MG TAB PO PRN ×2 (04:34→20:33)
[2018-09-29 07:02] LABS: Anion Gap 12 mmol/L (10-20); BUN (Urea Nitrogen) 15 mg/dL (8.4-25.7); Calc. Creatinine Clearance 62 mL/min (70-130); Calcium 9.6 mg/dL (7.8-10.44); Carbon Dioxide 25 mmol/L (23-31); Chloride 98 mmol/L (98-107); Estimated GFR-MDRD Greater than 90; Glucose 74 mg/dL (83-110); Potassium 3.8 mmol/L (3.5-5.1); Sodium 131 mmol/L (136-145)
[2018-09-29] MEDS: Aspirin Chewable 81 MG TAB PO SCH (07:58)
[2018-09-29] MEDS: Amlodipine 5 MG TAB PO SCH (07:58)
[2018-09-29] MEDS: Naproxen 500 MG TAB PO SCH ×2 (07:59→17:04)
[2018-09-29] MEDS: Insulin Glargine 30 UNITS in Pre-Filled Syringe 1 EACH SC SCH ×2 (08:00→20:33)
[2018-09-29] MEDS: DorzolamidE/Timolol 2%/0.5% Ophth Soln 10 ml Bottle R EYE SCH ×2 (08:00→20:32)
[2018-09-29] MEDS: Enoxaparin Sodium 40 MG/0.4 ML SYRINGE SC SCH (08:00)
[2018-09-29] MEDS: Metoprolol Tartrate 100 MG TAB PO SCH ×2 (08:01→20:33)
--- NOTE | 2018-09-29 11:03 | PDOC.HOSPP ---
- Subjective Subjective: Feels ok. Still has some discomfort in LLE. Walking with walker. - Objective Vital Signs & Weight: Vital Signs (12 hours) Temp Pulse Resp BP BP BP Pulse Ox 09/29/18 08:00 95 09/29/18 07:58 75 133/63 09/29/18 07:37 99.1 F 75 18 133/63 95 09/29/18 04:00 99.5 F 75 20 152/68 H 94 L 09/29/18 02:10 98.6 F 09/29/18 00:28 99.5 F 67 20 150/70 H 93 L Weight Admit Weight 127 lb 13.89 oz Weight 127 lb 13.89 oz I&O: 09/28/18 09/29/18 09/30/18 06:59 06:59 06:59 Intake Total 120 1300 Balance 120 1300 Result Diagrams: 09/26/18 06:11 09/29/18 06:10 Additional Labs: Accuchecks 09/29/18 09/28/18 09/28/18 04:30 19:06 16:10 POC Glucose 75 242 H 128 H 09/28/18 11:15 POC Glucose 227 H ROS - Review of Systems All systems: All other ROS were reviewed and found negative. - Medication Medications: Active Medications Generic Name Dose Route Start Last Admin Trade Name Kayla PRN Reason Stop Dose Admin Acetaminophen 650 mg 09/26/18 10:04 09/29/18 04:34 Tylenol PO 650 mg Q4H PRN Administration Headache/Fever/Mild Pain (1-3) Amlodipine Besylate 5 mg 09/28/18 09:00 09/29/18 07:58 Norvasc PO 5 mg DAILY GLYNN Administration Aspirin 81 mg 09/28/18 09:00 09/29/18 07:58 Aspirin Chewable PO 81 mg DAILY GLYNN Administration Dorzolamide/Timolol 1 drop 09/27/18 21:00 09/29/18 08:00 Cosopt 2-0.5% Ophth Soln R EYE 1 drop BID GLYNN Administration Enoxaparin Sodium 40 mg 09/27/18 09:00 09/29/18 08:00 Lovenox SC 40 mg 0900 GLYNN Administration Insulin Glargine 30 units/ 0.3 mls @ 0 mls/hr 09/26/18 21:00 09/29/18 08:00 Miscellaneous Medication SC 0.3 mls BID GLYNN Administration Insulin Human Lispro 0 units 09/26/18 10:04 09/28/18 20:26 Humalog SC 4 unit .MODERATE SLIDING SC PRN Administration Moderate Correctional Scale Metoprolol Tartrate 100 mg 09/27/18 21:00 09/29/18 08:01 Lopressor PO 100 mg BID GLYNN Administration Naproxen 500 mg 09/26/18 17:00 09/29/18 07:59 Naprosyn PO 500 mg BID-WM GLYNN Administration Simvastatin 40 mg 09/27/18 21:00 09/28/18 20:05 Zocor PO 40 mg HS GLYNN Administration - Exam NAD Neck: supple, symmetric, no JVD, no Thyromegaly, no lymphadenopathy, no carotid bruit Heart: RRR, no murmur, no gallops, no rubs, normal peripheral pulses Respiratory: CTAB, no wheezes, no rales, no ronchi, normal chest expansion, no tachypnea, normal percussion Gastrointestinal: soft, non-tender, non-distended, normal bowel sounds, no palpable masses, no hepatomegaly, no splenomegaly, no bruit Neurological: normal sensation to touch, no weakness, no focal deficits, no new deficit Musculoskeletal: normal tone, normal strength, no muscle wasting Hosp A/P (1) Lumbar radiculopathy Code(s): M54.16 - RADICULOPATHY, LUMBAR REGION Status: Acute (2) Acute metabolic encephalopathy Code(s): G93.41 - METABOLIC ENCEPHALOPATHY Status: Acute (3) Hyponatremia Code(s): E87.1 - HYPO-OSMOLALITY AND HYPONATREMIA Status: Acute (4) CKD (chronic kidney disease), stage II Code(s): N18.2 - CHRONIC KIDNEY DISEASE, STAGE 2 (MILD) Status: Chronic (5) DM II (diabetes mellitus, type II), controlled Code(s): E11.9 - TYPE 2 DIABETES MELLITUS WITHOUT COMPLICATIONS Status: Chronic - Plan Sodium is better after Tolvaptan. Nephrology following. Could not get the MRI. Too uncomfortable to stay in the required position. Discussed the findings of the CT. NS was consulted, but has not seen him yet. If the CT is accurate, he does have spinal and neural foraminal stenosis at multiple lumbar levels. Surgery might be an option. He is not sure that he wants to consider surgery given his age and risk. Discussed the possibility of injections as well. If he is not interested in pursuing surgery, he can follow up with NS as outpatient. If he is, he can see NS here. They may see him today either way. He may need OP MRI that is more open and allow better positioning. He wants to discuss with his daughter.
[2018-09-29] MEDS: HumaLOG 300 UNITS/3 ML VIAL SC PRN (17:07)
[2018-09-29] MEDS: Simvastatin 40 MG TAB PO SCH (20:33)
[2018-09-30] MEDS: Naproxen 500 MG TAB PO SCH (09:19)
[2018-09-30] MEDS: Metoprolol Tartrate 100 MG TAB PO SCH (09:19)
[2018-09-30] MEDS: Aspirin Chewable 81 MG TAB PO SCH (09:19)
[2018-09-30] MEDS: Amlodipine 5 MG TAB PO SCH (09:19)
[2018-09-30] MEDS: DorzolamidE/Timolol 2%/0.5% Ophth Soln 10 ml Bottle R EYE SCH (09:20)
[2018-09-30] MEDS: Enoxaparin Sodium 40 MG/0.4 ML SYRINGE SC SCH (09:21)
[2018-09-30] MEDS: Insulin Glargine 30 UNITS in Pre-Filled Syringe 1 EACH SC SCH (09:21)
[2018-09-30 09:27] LABS: Anion Gap 11 mmol/L (10-20); BUN (Urea Nitrogen) 14 mg/dL (8.4-25.7); Calc. Creatinine Clearance 60 mL/min (70-130); Calcium 8.9 mg/dL (7.8-10.44); Carbon Dioxide 23 mmol/L (23-31); Chloride 99 mmol/L (98-107); Estimated GFR-MDRD 87; Glucose 271 mg/dL (83-110); Potassium 3.8 mmol/L (3.5-5.1); Sodium 129 mmol/L (136-145)
[2018-09-30] MEDS: HumaLOG 300 UNITS/3 ML VIAL SC PRN (12:31)
[2018-09-30 14:31] VITALS: BP 132/72; TEMP 98.1
--- NOTE | 2018-10-01 03:44 | DIS ---
DATE OF ADMISSION: 09/26/2018 DATE OF DISCHARGE: 09/30/2018 DISCHARGE DIAGNOSES: 1. Hyponatremia. 2. Lumbar radiculopathy. 3. Lumbar spinal stenosis. 4. Lumbar neuroforaminal stenosis. SECONDARY CHRONIC DIAGNOSES: 1. Diabetes mellitus. 2. Hypertension. 3. Coronary artery disease. 4. Chronic kidney disease stage 2. 5. Hyperlipidemia. HISTORY OF PRESENT ILLNESS: This patient is a 78-year-old male, who presented via the emergency department with a complaint of left lower extremity pain and weakness. Please see the dictated history and physical dated 09/26/2018, by Dr. Anne Tomas for full details. The patient's workup in the emergency department was also notable for hyponatremia with a sodium of 120. The patient was subsequently admitted to the hospital primarily for the hyponatremia. HOSPITAL COURSE: With regard to hyponatremia, the patient initially had gentle hydration with normal saline at 75 mL/h. In spite of that, the patient's sodium actually dropped down as well as to 117. He subsequently had fluid restriction consultation by Nephrology. He subsequently had urine studies performed revealing urine osmolality of 439 and urine sodium of 57. Subsequently, the patient was given a dose of tolvaptan. Subsequently, his sodium increased up to as high as 131. The patient remained asymptomatic with respect to his hyponatremia and on the day of discharge, it was 129, but was cleared by Nephrology for discharge to have outpatient followup. In reviewing the patient's prior records, indicates the patient has actually only had one sodium measurement of 136 in March of 2017. Other than that going back to June of 2016, he has been continuously hyponatremic making this more of a chronic condition. With regard to the patient's lumbar radiculopathy, he had a CT scan of the lumbar spine performed, which revealed multiple levels of lumbar spinal stenosis and neuroforaminal stenosis. The patient was then set up for an MRI. However, due to discomfort, the patient was unable to accomplish the MRI, had a conversation with the patient regarding treatment plan. Given the findings on the CT, it is possible that he could potentially have some injections of the lumbar spine versus surgical intervention. He is hesitant to even consider surgical intervention given his advanced age and fear of having the poor outcome. We did discuss the possibility of followup with a face painter, which he is amenable to. These issues were discussed with his daughter as well. Ultimately opted to have outpatient followup and continue p.r.n. OTCs for pain as needed. The patient's other chronic medical conditions were stable. He was maintained on his usual home regimen of medications. PHYSICAL EXAMINATION: VITAL SIGNS: On the day of discharge, temperature was 97.6, pulse 64, O2 saturation 99% on room air, BP 186/65. GENERAL: He is awake, alert, oriented, pleasant, cooperative. HEART: Regular rate and rhythm without murmurs, gallops, or rubs. LUNGS: Clear to auscultation bilaterally with good chest wall expansion and air exchange. ABDOMEN: Soft, nontender, and nondistended. Positive bowel sounds. No masses. No organomegaly. EXTREMITIES: No cyanosis, clubbing, or edema. DISPOSITION: The patient is discharged to home. ACTIVITY: As tolerated. DIET: He will have no dietary restrictions, but will remain on a 1500 mL per day fluid restriction. HOME MEDICATIONS: Will include: 1. Simvastatin 40 mg at bedtime. 2. Metoprolol 100 mg p.o. b.i.d. 3. Felodipine 5 mg p.o. daily. 4. Aspirin 81 mg daily. 5. Insulin glargine 30 units subcu b.i.d. 6. Dorzolamide timolol eye drops 1 drop right eye b.i.d. FOLLOWUP: He will follow up with Dr. Branch in 2 weeks. He can follow up with Dr. Garcia of Neurosurgery as an outpatient. He should follow up with Dr. Mendoza, his primary care physician who may wish to refer him to a face painter. The patient is welcome to return to the hospital should he have any problems prior to his followup. TIME SPENT: Total time in discharge activities including [id number] time with the patient, accounting for more than 50% of the time was a total of 31 minutes. Job ID: [id number]
--- NOTE | 2018-10-01 15:38 | PRG ---
DATE OF SERVICE: 09/29/2018 This is a 30-minute initial visit note, in which 30 minutes were spent reviewing the imaging record, evaluation, examination of the patient, and formulation of plan. Greater than 50% time was spent in counseling on Sonia Calderon. Mr. Calderon is a very pleasant 78-year-old gentleman. He states that for the last week, he has had not so much in the way of pain, but left greater than right lower extremity pain. neurologically intact. CT scan of his lumbar spine was performed, which demonstrates a relatively flat back lumbar lordosis with severe spondylitic changes. MRI is also pending at the time of my evaluation, but I would not at all be surprised if the patient has symptomatic lumbar stenosis. I have discussed with the patient that the best course of action at this point is physical therapy and we can see him in an outpatient followup. He seems to be in good spirits now and with excellent pain control at this time, I think that the initial course of action will be lumbar epidural steroid injections targeting the most stenotic areas in the lumbar spine lumbar decompression. We will arrange followup in our clinic in the near future. This was discussed with the patient lumbar stenosis. Job ID: [id number]
--- NOTE | 2018-10-01 15:39 | PRG ---
DATE OF SERVICE: 09/30/2018 SUBJECTIVE: The patient was seen and examined, seems to be feeling much better. OBJECTIVE: VITAL SIGNS: Noted with the following vital signs; afebrile, temperature 97.6, pulse 74, respiratory rate of 18, HEENT: Unremarkable. CARDIOVASCULAR: First and second heart sounds were heard. RESPIRATORY: Clear to auscultation. DIGESTIVE: Revealed a benign abdomen. EXTREMITIES: No peripheral edema. SKIN: No new gross rash. LYMPHATICS: No peripheral lymphadenopathy. LABORATORY DATA: Showed a sodium of 131. IMPRESSION: 1. Hyponatremia . 2. Syndrome of inappropriate antidiuretic hormone. PLAN: 1. We will start calcium as needed. Discontinue tobacco use. 2. any issues. 3. Condition of patient is good. Job ID: [id number]
== END 2018-09-30 14:55 | disposition home or self-care (01) | DRG 645 ==
LOC: ERS 05:08 → T4-B 07:43
PROVIDERS: ADMIT Internal Medicine; ATTEND Internal Medicine
DX: E22.2 Syndrome of inappropriate secretion of antidiuretic hormone (principal); E11.22 Type 2 diabetes mellitus with diabetic chronic kidney disease; I12.9 Hypertensive chronic kidney disease with stage 1 through stage 4 chronic kidney disease, or unspecified chronic kidney disease; N18.2 Chronic kidney disease, stage 2 (mild); M54.16 Radiculopathy, lumbar region; M40.56 Lordosis, unspecified, lumbar region; M48.061 Spinal stenosis, lumbar region without neurogenic claudication; E78.5 Hyperlipidemia, unspecified; I25.10 Atherosclerotic heart disease of native coronary artery without angina pectoris; D63.1 Anemia in chronic kidney disease; I25.2 Old myocardial infarction; Z79.4 Long term (current) use of insulin; Z79.82 Long term (current) use of aspirin; Z79.899 Other long term (current) drug therapy; Z90.49 Acquired absence of other specified parts of digestive tract; Z95.5 Presence of coronary angioplasty implant and graft
CPT/HCPCS: 36415; 36416; 71045; 72131; 80048; 80053; 81003; 81015; 82533; 82607; 83036; 83540; 83550; 83935; 84300; 84443; 84484; 85025; 90471; 90670; 93005; 93010; C9488; G0009; J1650; J1815

== ENCOUNTER 2019-02-14 16:17 | Inpatient (IN) | payer MEDICARE ==
[2019-02-14 17:06] LABS: #Eosinphils 0.1 thou/uL (0.0-0.7); #Lymphocytes 1.5 thou/uL (1.20-3.40); #Monocytes 0.6 thou/uL (0.11-0.59); #Neutrophils 7.4 thou/uL (1.40-6.50); %Eosinophils 0.6 % (0.0-10.0); %Monocytes 6.6 % (0.0-10.0); %Neutrophils 76.8 % (42.0-75.0); Hemoglobin 11.7 g/dL (14.0-18.0); Mean Corpuscular HGB CONC 32.9 g/dL (32.0-36.0); Mean Corpuscular Hemoglobin 27.7 pg (27.0-31.0); Mean Corpuscular Volume 84.4 fL (78.0-98.0); Mean Platelet Volume 8.5 fL (7.4-10.4); Platelet Count 237 thou/uL (130-400); RBC Distribution Width 13.2 % (11.5-14.5); Red Blood Cell (RBC) Count 4.23 mill/uL (4.70-6.10); White Blood Cell (WBC) Count 9.7 thou/uL (4.8-10.8)
[2019-02-14 17:32] LABS: ALT (SGPT) 85 U/L (8-55); AST (SGOT) 127 U/L (5-34); Albumin 3.6 g/dL (3.4-4.8); Alkaline Phosphatase 151 U/L (40-110); Anion Gap 13 mmol/L (10-20); BUN (Urea Nitrogen) 10 mg/dL (8.4-25.7); Bilirubin, Total 0.5 mg/dL (0.2-1.2); Calc. Creatinine Clearance 0 mL/min (70-130); Carbon Dioxide 25 mmol/L (23-31); Chloride 96 mmol/L (98-107); Estimated GFR-MDRD 54; Globulin 3.3 g/dL (2.4-3.5); Potassium 4.1 mmol/L (3.5-5.1); Protein, Total 6.9 g/dL (5.8-8.1); Sodium 130 mmol/L (136-145)
--- NOTE | 2019-02-14 17:34 | CT ---
EXAM: CT Brain WO Con PROVIDED CLINICAL HISTORY: Head injury COMPARISON: None FINDINGS: The ventricular system is normal in size and morphology. There are scattered foci of acute subarachno id hemorrhage involving both cerebral hemispheres. There is a small right anterior parafalcine subdural hematoma. There is a small hemorrhagic cortical contusion involving the right temporal regio n. There is no shift of the midline structures. The basilar cisterns appear patent. The extracranial soft tissues and osseous structures demonstrate no evidence for an acute abnormality. IMPRESSION: Acute subarachnoid hemorrhage, hemorrhagic cortical contusion and subdural hematoma as described. Burt luna communicated to the referring clinician 5:31 PM 02/14/2019.
--- NOTE | 2019-02-14 17:35 | RAD ---
EXAM: Portable chest PROVIDED CLINICAL HISTORY: Altered mental status COMPARISON: 09/26/2018 FINDINGS: Cardiac and mediastinal silhouette is within normal limits. No focal consolidation, pleural fluid or pneumothorax evident. Vascular calcification involves the aortic arch. IMPRESSION: No evidence for an acute cardiopulmonary process.
--- NOTE | 2019-02-14 17:38 | CT ---
EXAM: CT cervical spine PROVIDED CLINICAL HISTORY: Trauma COMPARISON: None FINDINGS: No evidence for fracture or traumatic subluxation. No prevertebral soft tissue swelling apparent. Vi sualized lung apices appear clear. Cervical degenerative changes are noted. Vascular calcifications are seen. IMPRESSION: No evidence for fracture or traumatic subluxation.
[2019-02-14 17:40] LABS: Glucose 617 mg/dL (83-110)
[2019-02-14 17:56] LABS: Bacteria/HPF None Seen HPF (None Seen); Bilirubin Negative (Negative); Blood, Urine 1+ (Negative); Clarity Clear (Clear); Glucose, Urine (Dipstick) Greater than 1000 mg/dL (Negative); Leukocyte Negative Leu/uL (Negative); Nitrite Negative (Negative); Protein, Urine (Dipstick) 10 mg/dL (Neg-Trace); RBC/HPF 0-3 HPF (0-3); Squamous Epithelial None Seen HPF (0-3); Urobilinogen Normal mg/dL (Less than 2); WBC/HPF 0-3 HPF (0-3)
[2019-02-14] MEDS ORDERED: Lisinopril 10 MG TAB ONE (17:58)
[2019-02-14] MEDS ORDERED: Metoprolol Tartrate 5 MG/5 ML VIAL ONE (17:59)
[2019-02-14] MEDS ORDERED: Lidocaine 1% (PF) 30 ML VIAL ONE (18:14)
[2019-02-14] MEDS ORDERED: Amlodipine 5 MG TAB PO SCH (18:15)
[2019-02-14] MEDS ORDERED: Insulin Regular 300 UNITS/3 ML VIAL ONE ×2 (18:16→18:18)
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
[2019-02-15] MEDS ORDERED: Dextrose 50% Abboject 50 ML SYRINGE SLOW IVP PRN (05:49)
[2019-02-15] MEDS ORDERED: Ondansetron PF 4 MG/2 ML Vial IVP PRN (05:49)
[2019-02-15] MEDS ORDERED: CCU Insulin Drip FS ONE (05:49)
[2019-02-15] MEDS ORDERED: Ondansetron ODT 4 MG TAB PO PRN (05:49)
[2019-02-15] MEDS ORDERED: Dextrose 5% in Water 1,000 ML IV PRN ×2 (05:49→08:17)
[2019-02-15 06:01] VITALS: BMI 20.7
[2019-02-15] MEDS ORDERED: [UNRECOGNIZED DRUG - REMARK] FS SCH (06:15)
[2019-02-15] MEDS ORDERED: HUMULIN R 100 UNITS in Sodium Chloride 0.9% 100 ML IVPB SCH ×2 (06:15→17:15)
[2019-02-15 06:22] LABS: Lactic Acid 1.5 mmol/L (0.5-2.2)
[2019-02-15] MEDS: Sodium Chloride 0.9% 1,000 ML IV SCH ×2 (07:10→14:46)
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
[2019-02-15 08:02] LABS: #Lymphocytes 1.9 thou/uL (1.20-3.40); #Monocytes 0.7 thou/uL (0.11-0.59); #Neutrophils 7.3 thou/uL (1.40-6.50); %Basophils 0.1 % (0.0-1.0); %Eosinophils 0.3 % (0.0-10.0); %Lymphocytes 19.4 % (21.0-51.0); %Monocytes 7.3 % (0.0-10.0); %Neutrophils 72.9 % (42.0-75.0); Hemoglobin 10.7 g/dL (14.0-18.0); Mean Corpuscular HGB CONC 33.5 g/dL (32.0-36.0); Mean Corpuscular Hemoglobin 27.9 pg (27.0-31.0); Mean Corpuscular Volume 83.4 fL (78.0-98.0); Mean Platelet Volume 8.3 fL (7.4-10.4); Platelet Count 241 thou/uL (130-400); RBC Distribution Width 13.3 % (11.5-14.5); Red Blood Cell (RBC) Count 3.83 mill/uL (4.70-6.10)
[2019-02-15] MEDS ORDERED: Dextrose 50% Abboject 50 ML SYRINGE IVP PRN (08:17)
[2019-02-15] MEDS ORDERED: HumaLOG 300 UNITS/3 ML VIAL SC PRN (08:17)
[2019-02-15 08:30] LABS: Anion Gap 14 mmol/L (10-20); BUN (Urea Nitrogen) 10 mg/dL (8.4-25.7); Calc. Creatinine Clearance 56 mL/min (70-130); Calcium 9.1 mg/dL (7.8-10.44); Carbon Dioxide 23 mmol/L (23-31); Chloride 101 mmol/L (98-107); Estimated GFR-MDRD 87; Glucose 277 mg/dL (83-110); Magnesium 1.8 mg/dL (1.6-2.6); Phosphorus 3.1 mg/dL (2.3-4.7); Potassium 4.1 mmol/L (3.5-5.1); Sodium 134 mmol/L (136-145)
[2019-02-15 08:48] LABS: Hemoglobin A1c Greater than 14.0 % (4.0-6.0)
[2019-02-15] MEDS: Insulin Glargine 20 UNITS in Pre-Filled Syringe 1 EACH SC SCH (08:53)
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
[2019-02-15] MEDS: Insulin Regular 300 UNITS/3 ML VIAL SC PRN (14:59)
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
[2019-02-15] MEDS ORDERED: Gabapentin 300 MG CAP PO PRN (19:04)
[2019-02-15] MEDS: Atorvastatin Calcium 20 MG TAB PO SCH (20:51)
[2019-02-15] MEDS: Metoprolol Tartrate 50 MG TAB PO SCH (20:51)
[2019-02-15] MEDS ORDERED: Simvastatin 40 MG TAB PO SCH (21:00)
[2019-02-15] MEDS ORDERED: Lisinopril 20 MG TAB PO SCH (21:00)
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
[2019-02-16 03:31] LABS: #Lymphocytes 2.3 thou/uL (1.20-3.40); #Monocytes 0.8 thou/uL (0.11-0.59); #Neutrophils 6.2 thou/uL (1.40-6.50); %Basophils 0.3 % (0.0-1.0); %Eosinophils 0.5 % (0.0-10.0); %Lymphocytes 24.4 % (21.0-51.0); %Monocytes 8.2 % (0.0-10.0); %Neutrophils 66.6 % (42.0-75.0); Hemoglobin 10.1 g/dL (14.0-18.0); Mean Corpuscular HGB CONC 33.7 g/dL (32.0-36.0); Mean Corpuscular Volume 82.8 fL (78.0-98.0); Mean Platelet Volume 7.9 fL (7.4-10.4); Platelet Count 226 thou/uL (130-400); RBC Distribution Width 13.2 % (11.5-14.5); Red Blood Cell (RBC) Count 3.61 mill/uL (4.70-6.10); White Blood Cell (WBC) Count 9.3 thou/uL (4.8-10.8)
[2019-02-16 03:50] LABS: Anion Gap 12 mmol/L (10-20); BUN (Urea Nitrogen) 11 mg/dL (8.4-25.7); Calc. Creatinine Clearance 61 mL/min (70-130); Calcium 9.1 mg/dL (7.8-10.44); Carbon Dioxide 23 mmol/L (23-31); Chloride 102 mmol/L (98-107); Estimated GFR-MDRD Greater than 90; Glucose 112 mg/dL (83-110); Potassium 3.1 mmol/L (3.5-5.1); Sodium 134 mmol/L (136-145)
[2019-02-16] MEDS: Insulin Regular 300 UNITS/3 ML VIAL SC PRN ×4 (06:16→21:13)
[2019-02-16] MEDS: Metoprolol Tartrate 50 MG TAB PO SCH ×2 (07:19→19:51)
[2019-02-16] MEDS: hydrALAZINE 20 MG/ML VIAL SLOW IVP PRN ×2 (07:19→21:13)
[2019-02-16] MEDS: Insulin Glargine 20 UNITS in Pre-Filled Syringe 1 EACH SC SCH (07:26)
[2019-02-16 08:19] LABS: Magnesium 1.8 mg/dL (1.6-2.6); Phosphorus 2.4 mg/dL (2.3-4.7)
[2019-02-16] MEDS ORDERED: Magnesium 2 GM/50 ML 2 GM in Premix Bag 1 BAG IVPB SCH ×2 (09:15→11:45)
[2019-02-16] MEDS ORDERED: Magnesium Sulfate 2 GM in Sodium Chloride 0.9% 250 ML 250 ML IVPB SCH (09:15)
[2019-02-16] MEDS ORDERED: Potassium Chloride 40 MEQ in Sodium Chloride 0.9% 250 ML 250 ML IVPB SCH (09:15)
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
[2019-02-16] MEDS: Atorvastatin Calcium 20 MG TAB PO SCH (19:51)
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
[2019-02-17 08:40] LABS: Calcium 8.6 mg/dL (7.8-10.44); Chloride 100 mmol/L (98-107); Potassium 3.6 mmol/L (3.5-5.1); Sodium 131 mmol/L (136-145)
[2019-02-17 08:41] LABS: Glucose 465 mg/dL (83-110)
[2019-02-17 08:42] LABS: Anion Gap 12 mmol/L (10-20); Carbon Dioxide 23 mmol/L (23-31)
[2019-02-17 08:44] LABS: Calc. Creatinine Clearance 46 mL/min (70-130); Estimated GFR-MDRD 70
[2019-02-17 08:45] LABS: BUN (Urea Nitrogen) 10 mg/dL (8.4-25.7)
[2019-02-17] MEDS: Insulin Glargine 20 UNITS in Pre-Filled Syringe 1 EACH SC SCH (09:03)
[2019-02-17] MEDS: Metoprolol Tartrate 50 MG TAB PO SCH ×2 (09:03→20:23)
[2019-02-17 09:30] LABS: Phosphorus 3.7 mg/dL (2.3-4.7)
[2019-02-17] MEDS ORDERED: Insulin Glargine 10 UNITS in Pre-Filled Syringe 1 EACH SC SCH (09:45)
[2019-02-17] MEDS: Insulin Regular 300 UNITS/3 ML VIAL SC PRN ×2 (11:48→16:23)
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
[2019-02-17] MEDS: metFORMIN 500 MG TAB PO SCH (16:23)
[2019-02-17] MEDS: Atorvastatin Calcium 20 MG TAB PO SCH (20:23)
[2019-02-17] MEDS: Senokot S 8.6-50 MG TAB PO SCH (22:39)
[2019-02-18] MEDS: hydrALAZINE 20 MG/ML VIAL SLOW IVP PRN ×2 (06:42→13:22)
[2019-02-18] MEDS: Insulin Regular 300 UNITS/3 ML VIAL SC PRN ×2 (06:42→12:12)
[2019-02-18] MEDS: metFORMIN 500 MG TAB PO SCH (07:27)
[2019-02-18] MEDS: Metoprolol Tartrate 50 MG TAB PO SCH (07:27)
[2019-02-18] MEDS: Senokot S 8.6-50 MG TAB PO SCH (07:27)
[2019-02-18] MEDS ORDERED: Polyethylene Glycol 3350 17 GM Packet PO SCH (09:00)
[2019-02-18] MEDS ORDERED: Insulin Glargine 30 UNITS in Pre-Filled Syringe 1 EACH SC SCH (09:00)
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
[2019-02-18 11:52] VITALS: TEMP 98.8
[2019-02-18 13:31] VITALS: BP 167/78
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
== END 2019-02-18 13:36 | disposition swing bed (61) | DRG 87 ==
LOC: ERS 16:17 → IMCU/EMU 17:02 → ERHOLD 18:35 → IMCU/EMU 02-15 05:27 → SURG A 02-16 09:32
PROVIDERS: ADMIT Surgery; ATTEND Surgery
DX: S06.5X0A Traumatic subdural hemorrhage without loss of consciousness, initial encounter (principal); R40.2362 Coma scale, best motor response, obeys commands, at arrival to emergency department; R40.2142 Coma scale, eyes open, spontaneous, at arrival to emergency department; R40.2252 Coma scale, best verbal response, oriented, at arrival to emergency department; V89.2XXA Person injured in unspecified motor-vehicle accident, traffic, initial encounter; M50.30 Other cervical disc degeneration, unspecified cervical region; E11.65 Type 2 diabetes mellitus with hyperglycemia; S06.6X0A Traumatic subarachnoid hemorrhage without loss of consciousness, initial encounter; I25.2 Old myocardial infarction; Z95.5 Presence of coronary angioplasty implant and graft; Z90.49 Acquired absence of other specified parts of digestive tract; Z79.82 Long term (current) use of aspirin; Z79.4 Long term (current) use of insulin; Z79.899 Other long term (current) drug therapy
CPT/HCPCS: 12001; 36415; 36416; 70450; 71045; 72125; 80048; 80053; 81003; 81015; 83036; 83605; 83735; 84100; 84484; 85025; 93005; 96361; 96374; 96375; G0390; J0360; J1815; J2001; J3475; J3480; J3490; J7050

== ENCOUNTER 2019-04-01 08:35 | Outpatient (CLI) | payer MEDICARE ==
--- NOTE | 2019-04-01 09:11 | CT ---
HEAD CT WITHOUT CONTRAST: HISTORY: Multifocal subarachnoid hemorrhage. Followup exam. COMPARISON: 02/15/2019. FINDINGS: Interval resolution of previously noted subarachnoid hemorrhage. Currently, no extraaxial hematoma. No parenchymal hemorrhage. No midline shift. Basilar cisterns are patent. Brain volume, age appro priate. Cortical rolle-white matter differentiation is preserved. No hydrocephalus. Minimal white m atter hypodensities or chronic small-vessel ischemic change. Adequate aeration of the mastoid air cells. Partial opacification of the right sphenoid sinus, simil ar to the previous examination. Intact calvarium. IMPRESSION: Interval resolution of previously noted subarachnoid hemorrhage. POS: [facility]
== END 2019-04-01 08:36 | disposition home or self-care (01) ==
LOC: TBSIIMAG 08:35
PROVIDERS: ATTEND Surgery
DX: S06.5X9D Traumatic subdural hemorrhage with loss of consciousness of unspecified duration, subsequent encounter (principal); S06.6X9D Traumatic subarachnoid hemorrhage with loss of consciousness of unspecified duration, subsequent encounter
CPT/HCPCS: 70450

== ENCOUNTER 2020-10-10 12:54 | Inpatient (IN) | payer MEDICARE ==
[2020-10-10 13:45] LABS: #Basophils 0.1 thou/uL (0.0-0.2); #Eosinphils 0.1 thou/uL (0.0-0.7); #Lymphocytes 1.3 thou/uL (1.20-3.40); #Monocytes 0.7 thou/uL (0.11-0.59); #Neutrophils 7.5 thou/uL (1.40-6.50); %Basophils 0.6 % (0.0-1.0); %Monocytes 7.5 % (0.0-10.0); %Neutrophils 77.9 % (42.0-75.0); Hemoglobin 11.6 g/dL (14.0-18.0); Mean Corpuscular HGB CONC 34.7 g/dL (32.0-36.0); Mean Corpuscular Hemoglobin 28.9 pg (27.0-31.0); Mean Corpuscular Volume 83.1 fL (78.0-98.0); Mean Platelet Volume 7.5 fL (7.4-10.4); Platelet Count 293 thou/uL (130-400); RBC Distribution Width 13.5 % (11.5-14.5); Red Blood Cell (RBC) Count 4.03 mill/uL (4.70-6.10); White Blood Cell (WBC) Count 9.6 thou/uL (4.8-10.8)
[2020-10-10] MEDS ORDERED: Lorazepam 2 MG/ML VIAL ONE (13:52)
[2020-10-10 14:07] LABS: ALT (SGPT) 15 U/L (8-55); AST (SGOT) 32 U/L (5-34); Alkaline Phosphatase 106 U/L (40-110); Anion Gap 13 mmol/L (10-20); BUN (Urea Nitrogen) 20 mg/dL (8.4-25.7); Bilirubin, Total 0.4 mg/dL (0.2-1.2); CK (CPK) 54 U/L (30-200); Calc. Creatinine Clearance 0 mL/min (70-130); Calcium 8.8 mg/dL (7.8-10.44); Carbon Dioxide 20 mmol/L (23-31); Chloride 100 mmol/L (98-107); Globulin 3.9 g/dL (2.4-3.5); Glucose 148 mg/dL (83-110); Potassium 5.4 mmol/L (3.5-5.1); Protein, Total 7.9 g/dL (5.8-8.1); Sodium 128 mmol/L (136-145)
[2020-10-10 14:19] LABS: PTT 27.3 sec (22.9-36.1); Prothrombin Time 13.2 sec (12.0-14.7)
[2020-10-10 14:35] LABS: SARS-CoV-2 NAA Rapid Test Not Detected (NotDetected)
[2020-10-10] MEDS ORDERED: Morphine 2 MG/ML VIAL ONE (15:15)
[2020-10-10] MEDS ORDERED: Ondansetron PF 4 MG/2 ML Vial IVP PRN ×2 (16:22→16:23)
[2020-10-10] MEDS ORDERED: Ondansetron ODT 4 MG TAB PO PRN (16:22)
[2020-10-10] MEDS ORDERED: Ondansetron PF 4 MG/2 ML Vial ONE (17:08)
[2020-10-10] MEDS ORDERED: niCARdipine 20MG In NaCl 20 MG/200 ML BAG ONE (17:53)
[2020-10-10] MEDS ORDERED: niCARdipine 25 MG in Sodium Chloride 0.9% 250 ML 250 ML IVPB PRN (18:42)
[2020-10-10] MEDS ORDERED: Electrolyte Replacement Protocol 1 EACH IVPB ONE (18:42)
[2020-10-10] MEDS ORDERED: Acetaminophen 650 MG Suppository PR PRN (19:36)
[2020-10-10] MEDS ORDERED: Electrolyte Replacement Protocol FS PRN (19:45)
[2020-10-10] MEDS ORDERED: Dextrose 50% Abboject 50 ML SYRINGE SLOW IVP PRN (20:35)
[2020-10-10] MEDS ORDERED: Dextrose 5% in Water 1,000 ML IV PRN (20:35)
[2020-10-10] MEDS: niCARdipine 25 MG in Sodium Chloride 0.9% 250 ML 240 ML IVPB PRN (20:43)
[2020-10-10] MEDS ORDERED: Famotidine/PF 20 mg/2ml Vial SLOW IVP SCH (21:00)
[2020-10-10] MEDS: levETIRAcetam in NS 500 MG in Premix Bag 1 BAG IVPB SCH (21:48)
[2020-10-10 23:16] LABS: Hemoglobin 11.2 g/dL (14.0-18.0)
[2020-10-11] MEDS: niCARdipine 25 MG in Sodium Chloride 0.9% 250 ML 240 ML IVPB PRN (00:11)
[2020-10-11 03:52] LABS: #Lymphocytes 1.4 thou/uL (1.20-3.40); #Monocytes 1.2 thou/uL (0.11-0.59); #Neutrophils 10.3 thou/uL (1.40-6.50); %Basophils 0.1 % (0.0-1.0); %Eosinophils 0.1 % (0.0-10.0); %Lymphocytes 10.7 % (21.0-51.0); %Monocytes 9.1 % (0.0-10.0); Hemoglobin 11.1 g/dL (14.0-18.0); Mean Corpuscular HGB CONC 33.6 g/dL (32.0-36.0); Mean Corpuscular Volume 83.4 fL (78.0-98.0); Platelet Count 299 thou/uL (130-400); RBC Distribution Width 13.4 % (11.5-14.5); Red Blood Cell (RBC) Count 3.95 mill/uL (4.70-6.10); White Blood Cell (WBC) Count 12.9 thou/uL (4.8-10.8)
[2020-10-11 04:18] LABS: Anion Gap 11 mmol/L (10-20); BUN (Urea Nitrogen) 19 mg/dL (8.4-25.7); Calc. Creatinine Clearance 0 mL/min (70-130); Calcium 8.8 mg/dL (7.8-10.44); Carbon Dioxide 23 mmol/L (23-31); Cardiac Risk 2.6 (Less than 4.5); Chloride 99 mmol/L (98-107); Cholesterol 87 mg/dl (< 200 Desired); Glucose 138 mg/dL (83-110); HDL Cholesterol 33 mg/dL (>60 Neg Risk); LDL Cholesterol, Calculated 44 mg/dL; Potassium 4.3 mmol/L (3.5-5.1); Sodium 129 mmol/L (136-145); Triglycerides 49 mg/dL (Less than 150)
[2020-10-11] MEDS: Pantoprazole 40 MG VIAL IVP SCH (09:03)
[2020-10-11] MEDS: levETIRAcetam in NS 500 MG in Premix Bag 1 BAG IVPB SCH ×2 (09:03→21:11)
[2020-10-11] MEDS: Sodium Chloride 0.9% 1,000 ML IV SCH (15:08)
[2020-10-11] MEDS: Lisinopril 5 MG TAB PO SCH (20:52)
[2020-10-11] MEDS ORDERED: Famotidine/PF 20 mg/2ml Vial SLOW IVP SCH (21:00)
[2020-10-11] MEDS: Metoprolol Tartrate 25 MG TAB PO SCH (21:08)
[2020-10-12 07:31] LABS: #Lymphocytes 1.4 thou/uL (1.20-3.40); #Monocytes 1.1 thou/uL (0.11-0.59); #Neutrophils 8.7 thou/uL (1.40-6.50); %Basophils 0.4 % (0.0-1.0); %Eosinophils 0.1 % (0.0-10.0); %Lymphocytes 12.7 % (21.0-51.0); %Monocytes 9.9 % (0.0-10.0); %Neutrophils 76.9 % (42.0-75.0); Hemoglobin 11.5 g/dL (14.0-18.0); Mean Corpuscular HGB CONC 33.6 g/dL (32.0-36.0); Mean Corpuscular Volume 83.5 fL (78.0-98.0); Mean Platelet Volume 6.7 fL (7.4-10.4); Platelet Count 280 thou/uL (130-400); RBC Distribution Width 13.3 % (11.5-14.5); Red Blood Cell (RBC) Count 4.09 mill/uL (4.70-6.10); White Blood Cell (WBC) Count 11.3 thou/uL (4.8-10.8)
[2020-10-12 07:49] LABS: Anion Gap 10 mmol/L (10-20); BUN (Urea Nitrogen) 15 mg/dL (8.4-25.7); Calc. Creatinine Clearance 53 mL/min (70-130); Calcium 8.8 mg/dL (7.8-10.44); Carbon Dioxide 24 mmol/L (23-31); Chloride 100 mmol/L (98-107); Glucose 131 mg/dL (83-110); Potassium 3.9 mmol/L (3.5-5.1); Sodium 130 mmol/L (136-145)
[2020-10-12] MEDS: levETIRAcetam in NS 500 MG in Premix Bag 1 BAG IVPB SCH ×2 (08:15→20:29)
[2020-10-12] MEDS: Pantoprazole 40 MG VIAL IVP SCH (08:15)
[2020-10-12] MEDS: Lisinopril 5 MG TAB PO SCH (08:21)
[2020-10-12] MEDS: Metoprolol Tartrate 25 MG TAB PO SCH (08:22)
[2020-10-12] MEDS: HumaLOG 300 UNITS/3 ML VIAL SC PRN ×2 (11:05→16:47)
[2020-10-12] MEDS: Sodium Chloride 0.9% 1,000 ML IV SCH (11:36)
[2020-10-12] MEDS: Acetaminophen 325 MG TAB PO PRN ×2 (15:35→20:29)
[2020-10-12] MEDS: hydrALAZINE 20 MG/ML VIAL SLOW IVP PRN (15:36)
[2020-10-12] MEDS: Lisinopril 10 MG TAB PO SCH (20:29)
[2020-10-12] MEDS: Metoprolol Tartrate 50 MG TAB PO SCH (20:29)
[2020-10-13] MEDS: hydrALAZINE 20 MG/ML VIAL SLOW IVP PRN ×3 (01:08→12:49)
[2020-10-13 05:20] LABS: #Lymphocytes 1.5 thou/uL (1.20-3.40); #Monocytes 1.3 thou/uL (0.11-0.59); #Neutrophils 9.7 thou/uL (1.40-6.50); %Basophils 0.1 % (0.0-1.0); %Eosinophils 0.3 % (0.0-10.0); %Monocytes 10.2 % (0.0-10.0); %Neutrophils 77.5 % (42.0-75.0); Hemoglobin 11.9 g/dL (14.0-18.0); Mean Corpuscular HGB CONC 34.5 g/dL (32.0-36.0); Mean Corpuscular Hemoglobin 28.8 pg (27.0-31.0); Mean Corpuscular Volume 83.4 fL (78.0-98.0); Platelet Count 303 thou/uL (130-400); RBC Distribution Width 13.3 % (11.5-14.5); Red Blood Cell (RBC) Count 4.13 mill/uL (4.70-6.10); White Blood Cell (WBC) Count 12.5 thou/uL (4.8-10.8)
[2020-10-13 05:40] LABS: Anion Gap 11 mmol/L (10-20); BUN (Urea Nitrogen) 18 mg/dL (8.4-25.7); Calc. Creatinine Clearance 55 mL/min (70-130); Carbon Dioxide 24 mmol/L (23-31); Chloride 99 mmol/L (98-107); Potassium 3.6 mmol/L (3.5-5.1); Sodium 130 mmol/L (136-145)
[2020-10-13 05:41] LABS: Calcium 9.1 mg/dL (7.8-10.44); Glucose 145 mg/dL (83-110)
[2020-10-13] MEDS: HumaLOG 300 UNITS/3 ML VIAL SC PRN ×2 (06:33→11:21)
[2020-10-13] MEDS: Sodium Chloride 0.9% 1,000 ML IV SCH (09:16)
[2020-10-13] MEDS: levETIRAcetam in NS 500 MG in Premix Bag 1 BAG IVPB SCH ×2 (09:16→21:49)
[2020-10-13] MEDS: Metoprolol Tartrate 50 MG TAB PO SCH ×2 (09:18→21:49)
[2020-10-13] MEDS: Lisinopril 10 MG TAB PO SCH ×2 (09:18→21:49)
[2020-10-13] MEDS: Acetaminophen 325 MG TAB PO PRN (09:51)
[2020-10-14] MEDS: Sodium Chloride 0.9% 1,000 ML IV SCH (02:15)
[2020-10-14] MEDS: hydrALAZINE 20 MG/ML VIAL SLOW IVP PRN ×2 (02:15→09:02)
[2020-10-14] MEDS ORDERED: Labetalol HCl 100 MG/20 ML VIAL SLOW IVP SCH ×2 (05:00→06:15)
[2020-10-14] MEDS ORDERED: hydrALAZINE 20 MG/ML VIAL SLOW IVP SCH (05:00)
[2020-10-14] MEDS: HumaLOG 300 UNITS/3 ML VIAL SC PRN ×4 (06:45→21:16)
[2020-10-14] MEDS: Metoprolol Tartrate 50 MG TAB PO SCH ×2 (08:55→21:15)
[2020-10-14] MEDS: levETIRAcetam in NS 500 MG in Premix Bag 1 BAG IVPB SCH ×2 (08:55→21:15)
[2020-10-14] MEDS: Lisinopril 10 MG TAB PO SCH (08:55)
[2020-10-14] MEDS ORDERED: NIFEdipine XL 30 MG TAB PO STA (12:40)
[2020-10-14] MEDS ORDERED: Lisinopril 10 MG TAB PO SCH (12:45)
[2020-10-14] MEDS ORDERED: NIFEdipine XL 60 MG TAB PO SCH (13:30)
[2020-10-14] MEDS: Lisinopril 20 MG TAB PO SCH (21:15)
[2020-10-15] MEDS ORDERED: Labetalol HCl 100 MG/20 ML VIAL SLOW IVP SCH (02:00)
[2020-10-15] MEDS: Acetaminophen 325 MG TAB PO PRN ×2 (04:31→17:45)
[2020-10-15] MEDS: HumaLOG 300 UNITS/3 ML VIAL SC PRN ×4 (05:42→20:40)
[2020-10-15] MEDS: Lisinopril 20 MG TAB PO SCH ×2 (08:09→20:41)
[2020-10-15] MEDS: levETIRAcetam in NS 500 MG in Premix Bag 1 BAG IVPB SCH ×2 (08:09→20:40)
[2020-10-15] MEDS: Metoprolol Tartrate 50 MG TAB PO SCH ×2 (08:10→20:41)
[2020-10-15] MEDS: NIFEdipine XL 60 MG TAB PO SCH (08:10)
[2020-10-16] MEDS ORDERED: Labetalol HCl 100 MG/20 ML VIAL SLOW IVP PRN (00:19)
[2020-10-16] MEDS ORDERED: Ibuprofen 600 MG TAB PO PRN (01:39)
[2020-10-16] MEDS: hydrALAZINE 20 MG/ML VIAL SLOW IVP PRN ×2 (01:55→04:19)
[2020-10-16 02:23] LABS: #Lymphocytes 1.7 thou/uL (1.20-3.40); #Monocytes 1.1 thou/uL (0.11-0.59); #Neutrophils 10.2 thou/uL (1.40-6.50); %Basophils 0.3 % (0.0-1.0); %Eosinophils 0.1 % (0.0-10.0); %Lymphocytes 13.1 % (21.0-51.0); %Monocytes 8.7 % (0.0-10.0); %Neutrophils 77.9 % (42.0-75.0); Hemoglobin 11.5 g/dL (14.0-18.0); Mean Corpuscular Hemoglobin 28.8 pg (27.0-31.0); Mean Corpuscular Volume 82.3 fL (78.0-98.0); Platelet Count 303 thou/uL (130-400); RBC Distribution Width 13.3 % (11.5-14.5); Red Blood Cell (RBC) Count 3.99 mill/uL (4.70-6.10)
[2020-10-16 02:41] LABS: Anion Gap 12 mmol/L (10-20); BUN (Urea Nitrogen) 29 mg/dL (8.4-25.7); Calc. Creatinine Clearance 47 mL/min (70-130); Calcium 8.6 mg/dL (7.8-10.44); Carbon Dioxide 22 mmol/L (23-31); Chloride 101 mmol/L (98-107); Glucose 217 mg/dL (83-110); Potassium 3.5 mmol/L (3.5-5.1); Sodium 131 mmol/L (136-145)
[2020-10-16] MEDS: HumaLOG 300 UNITS/3 ML VIAL SC PRN ×3 (05:42→21:09)
[2020-10-16] MEDS ORDERED: Potassium Chloride 20 MEQ TAB PO SCH (07:15)
[2020-10-16] MEDS: NIFEdipine XL 60 MG TAB PO SCH (08:56)
[2020-10-16] MEDS: Lisinopril 20 MG TAB PO SCH ×2 (08:57→21:05)
[2020-10-16] MEDS: Metoprolol Tartrate 50 MG TAB PO SCH ×2 (08:57→21:06)
[2020-10-16] MEDS: levETIRAcetam in NS 500 MG in Premix Bag 1 BAG IVPB SCH (08:58)
[2020-10-16] MEDS ORDERED: hydrALAZINE 25 MG TAB PO SCH (09:00)
[2020-10-16] MEDS ORDERED: Sodium Chloride 0.9% 1,000 ML IV SCH (11:30)
[2020-10-16] MEDS: levETIRAcetam 500 MG TAB PO SCH (21:06)
[2020-10-17] MEDS: HumaLOG 300 UNITS/3 ML VIAL SC PRN ×2 (06:27→17:57)
[2020-10-17] MEDS: Lisinopril 20 MG TAB PO SCH ×2 (08:44→21:02)
[2020-10-17] MEDS: Metoprolol Tartrate 50 MG TAB PO SCH ×2 (08:52→21:02)
[2020-10-17] MEDS: levETIRAcetam 500 MG TAB PO SCH ×2 (08:53→21:02)
[2020-10-17] MEDS: NIFEdipine XL 60 MG TAB PO SCH (08:53)
[2020-10-17 10:59] LABS: Anion Gap 14 mmol/L (10-20); BUN (Urea Nitrogen) 31 mg/dL (8.4-25.7); Calc. Creatinine Clearance 43 mL/min (70-130); Carbon Dioxide 22 mmol/L (23-31); Chloride 104 mmol/L (98-107); Glucose 224 mg/dL (83-110); Potassium 3.8 mmol/L (3.5-5.1); Sodium 136 mmol/L (136-145)
[2020-10-17 11:03] LABS: #Lymphocytes 1.6 thou/uL (1.20-3.40); #Monocytes 1.3 thou/uL (0.11-0.59); #Neutrophils 11.1 thou/uL (1.40-6.50); %Eosinophils 0.1 % (0.0-10.0); %Lymphocytes 11.4 % (21.0-51.0); %Monocytes 9.2 % (0.0-10.0); %Neutrophils 79.2 % (42.0-75.0); Hemoglobin 12.4 g/dL (14.0-18.0); Mean Corpuscular HGB CONC 34.7 g/dL (32.0-36.0); Mean Corpuscular Hemoglobin 28.7 pg (27.0-31.0); Mean Corpuscular Volume 82.8 fL (78.0-98.0); Mean Platelet Volume 7.5 fL (7.4-10.4); Platelet Count 359 thou/uL (130-400); RBC Distribution Width 13.5 % (11.5-14.5); Red Blood Cell (RBC) Count 4.33 mill/uL (4.70-6.10)
[2020-10-17] MEDS: Sodium Chloride 0.9% 1,000 ML IV SCH (14:07)
[2020-10-18] MEDS ORDERED: hydrALAZINE 20 MG/ML VIAL SLOW IVP SCH (03:30)
[2020-10-18] MEDS: Sodium Chloride 0.9% 1,000 ML IV SCH ×3 (04:27→21:40)
[2020-10-18 05:42] LABS: Anion Gap 13 mmol/L (10-20); BUN (Urea Nitrogen) 36 mg/dL (8.4-25.7); Calc. Creatinine Clearance 46 mL/min (70-130); Calcium 8.8 mg/dL (7.8-10.44); Carbon Dioxide 21 mmol/L (23-31); Chloride 106 mmol/L (98-107); Glucose 237 mg/dL (83-110); Potassium 3.5 mmol/L (3.5-5.1); Sodium 136 mmol/L (136-145)
[2020-10-18] MEDS ORDERED: Potassium Chloride 20 MEQ TAB PO SCH (06:45)
[2020-10-18] MEDS: HumaLOG 300 UNITS/3 ML VIAL SC PRN ×3 (06:56→17:52)
[2020-10-18] MEDS: levETIRAcetam 500 MG TAB PO SCH ×2 (07:17→20:16)
[2020-10-18] MEDS: Metoprolol Tartrate 50 MG TAB PO SCH ×2 (07:17→21:00)
[2020-10-18] MEDS: Lisinopril 20 MG TAB PO SCH ×2 (07:17→21:39)
[2020-10-18] MEDS ORDERED: PROPOFOL 200 MG/20 ML VIAL ONE (16:39)
[2020-10-18] MEDS ORDERED: Lidocaine 1% PF 5 ML VIAL ONE (16:39)
[2020-10-18] MEDS ORDERED: Promethazine HCl 25 MG/ML VIAL IVPB PRN (17:12)
[2020-10-18] MEDS ORDERED: Ondansetron HCl/PF 4 MG/2 ML Vial IVP PRN (17:12)
[2020-10-18] MEDS ORDERED: Promethazine HCl 25 MG/ML VIAL IM PRN (17:12)
[2020-10-18] MEDS: NIFEdipine XL 60 MG TAB PO SCH (17:56)
[2020-10-19 05:38] LABS: Anion Gap 12 mmol/L (10-20); BUN (Urea Nitrogen) 37 mg/dL (8.4-25.7); Calc. Creatinine Clearance 46 mL/min (70-130); Calcium 8.8 mg/dL (7.8-10.44); Carbon Dioxide 23 mmol/L (23-31); Chloride 106 mmol/L (98-107); Glucose 275 mg/dL (83-110); Potassium 3.8 mmol/L (3.5-5.1); Sodium 137 mmol/L (136-145)
[2020-10-19] MEDS: HumaLOG 300 UNITS/3 ML VIAL SC PRN ×4 (06:08→21:04)
[2020-10-19] MEDS ORDERED: Fluconazole In NaCl,Iso-Osm 100 MG in Premix Bag 1 BAG IVPB SCH (09:00)
[2020-10-19] MEDS: Fluconazole In NaCl,Iso-Osm 100 MG, Admixture Fee 1 EACH in Premix Bag 1 BAG IVPB SCH (09:16)
[2020-10-19] MEDS: Metoprolol Tartrate 50 MG TAB PO SCH ×2 (09:24→20:33)
[2020-10-19] MEDS: Lisinopril 20 MG TAB PO SCH ×2 (09:24→20:33)
[2020-10-19] MEDS: levETIRAcetam 500 MG TAB PO SCH ×2 (09:24→20:33)
[2020-10-19] MEDS: NIFEdipine XL 60 MG TAB PO SCH (12:07)
[2020-10-19] MEDS: Acetaminophen 325 MG TAB PO PRN (17:30)
[2020-10-19] MEDS ORDERED: Atorvastatin Calcium 20 MG TAB PO SCH (21:00)
[2020-10-20 05:40] LABS: Anion Gap 11 mmol/L (10-20); BUN (Urea Nitrogen) 32 mg/dL (8.4-25.7); Calc. Creatinine Clearance 49 mL/min (70-130); Calcium 8.7 mg/dL (7.8-10.44); Carbon Dioxide 25 mmol/L (23-31); Chloride 103 mmol/L (98-107); Glucose 357 mg/dL (83-110); Potassium 3.7 mmol/L (3.5-5.1); Sodium 135 mmol/L (136-145)
[2020-10-20] MEDS: HumaLOG 300 UNITS/3 ML VIAL SC PRN ×3 (06:18→16:52)
[2020-10-20] MEDS ORDERED: Lantus 1000 UNITS/10 ML VIAL SC SCH (09:00)
[2020-10-20] MEDS: Fluconazole In NaCl,Iso-Osm 100 MG, Admixture Fee 1 EACH in Premix Bag 1 BAG IVPB SCH (09:10)
[2020-10-20] MEDS: Lisinopril 20 MG TAB PO SCH (09:13)
[2020-10-20] MEDS: levETIRAcetam 500 MG TAB PO SCH (09:14)
[2020-10-20] MEDS: Metoprolol Tartrate 50 MG TAB PO SCH (09:14)
[2020-10-20] MEDS: NIFEdipine XL 60 MG TAB PO SCH (11:58)
[2020-10-20 15:08] VITALS: BMI 22.7
[2020-10-20 16:04] VITALS: TEMP 97.8
[2020-10-20 20:36] VITALS: BP 179/84
== END 2020-10-20 21:40 | disposition swing bed (61) | DRG 64 ==
LOC: ERS 12:54 → ERHOLD 15:33 → CCU 18:48 → 2SE 10-12 17:05
PROVIDERS: ADMIT Internal Medicine; ATTEND Internal Medicine
PROC: 0DH63UZ Insertion of Feeding Device into Stomach, Percutaneous Approach (ICD-10-PCS; principal; 2020-10-18)
DX: I61.1 Nontraumatic intracerebral hemorrhage in hemisphere, cortical (principal); Z20.822 Contact with and (suspected) exposure to COVID-19; Z66 Do not resuscitate; G93.6 Cerebral edema; G93.41 Metabolic encephalopathy; I16.1 Hypertensive emergency; E87.1 Hypo-osmolality and hyponatremia; G81.94 Hemiplegia, unspecified affecting left nondominant side; B37.81 Candidal esophagitis; N17.9 Acute kidney failure, unspecified; E46 Unspecified protein-calorie malnutrition; I60.9 Nontraumatic subarachnoid hemorrhage, unspecified; I25.10 Atherosclerotic heart disease of native coronary artery without angina pectoris; N18.30 Chronic kidney disease, stage 3 unspecified; E11.22 Type 2 diabetes mellitus with diabetic chronic kidney disease; F03.90 Unspecified dementia, unspecified severity, without behavioral disturbance, psychotic disturbance, mood disturbance, and anxiety; I12.9 Hypertensive chronic kidney disease with stage 1 through stage 4 chronic kidney disease, or unspecified chronic kidney disease; H40.9 Unspecified glaucoma; R13.12 Dysphagia, oropharyngeal phase; E78.5 Hyperlipidemia, unspecified; I95.9 Hypotension, unspecified; I25.2 Old myocardial infarction; Z87.891 Personal history of nicotine dependence; Z95.5 Presence of coronary angioplasty implant and graft; Z90.49 Acquired absence of other specified parts of digestive tract; Z87.820 Personal history of traumatic brain injury; Z79.899 Other long term (current) drug therapy; Z79.4 Long term (current) use of insulin; Z79.82 Long term (current) use of aspirin; Z83.2 Family history of diseases of the blood and blood-forming organs and certain disorders involving the immune mechanism; Z68.22 Body mass index [BMI] 22.0-22.9, adult
CPT/HCPCS: 0240U; 36415; 36416; 70450; 80048; 80053; 80061; 82550; 83605; 83930; 83935; 84300; 84484; 85025; 85610; 85730; 87040; 93005; 95712; 95819; 95957; 96365; 96375; C9113; J0360; J0690; J1450; J1815; J1953; J2060; J2270; J2405; J2704; J7050; S0028